=== PATIENT | female | born 1975 | race Caucasian/White ===

== ENCOUNTER 2022-12-09 15:53 | Inpatient (IN) | payer MEDICARE, MEDICAID, SELFPAY ==
[2022-12-09 16:30] VITALS: BP 116/78; PULSE 87; RESP 16; TEMP 36.6; O2SAT 98; BMI 31.9
[2022-12-09 16:34] LABS: Basophils Absolute Auto 0.1 10^3/uL (0.0-0.1); Basophils Percent Auto 0.5 % (0.2-2.0); Eosinophils Absolute Auto 0.1 10^3/uL (0.0-0.7); Eosinophils Percent Auto 0.9 % (0.9-7.0); Hemoglobin 11.7 g/dL (12.0-16.0); Immature Granulocytes Abs Auto 0.07 10^3/uL (0.00-0.03); Immature Granulocytes Pct Auto 0.5 % (0.0-0.5); Lymphocytes Percent Auto 14.4 % (20.5-60.0); Mean Corpuscular Hemoglobin 25.7 pg (26.7-34.0); Mean Corpuscular Volume 85.7 fL (81.0-99.0); Mean Platelet Volume 9.1 fL (9.5-13.5); Monocytes Absolute Auto 0.6 10^3/uL (0.3-0.8); Monocytes Percent Auto 4.5 % (1.7-12.0); Neutrophils Percent Auto 79.2 % (43.0-75.0); Platelet Count 359 10^3/uL (150-450); Red Blood Count 4.55 10^6/uL (4.20-5.40); Red Cell Distribution Width 16.4 % (11.0-15.0); White Blood Count 13.9 10^3/uL (4.0-11.0)
[2022-12-09 16:49] LABS: Partial Thromboplastin Time 33.3 sec (22.3-36.2)
[2022-12-09 16:51] LABS: C Reactive Protein 0.7 mg/dL (<=1.0)
[2022-12-09 16:55] LABS: Alanine Aminotransferase 15 U/L (14-59); Albumin Globulin Ratio 0.7; Albumin Level 3.9 g/dL (3.4-5.0); Alkaline Phosphatase 138 U/L (46-116); Anion Gap 12.4; Aspartate Amino Transferase 15 U/L (15-37); BUN Creatinine Ratio 10.5; Bilirubin Total 0.5 mg/dL (0.2-1.0); Calcium 9.7 mg/dL (8.5-10.1); Carbon Dioxide 27.6 mmol/L (21.0-32.0); Chloride 102 mmol/L (98-107); Estimated GFR (African America >60 (>=60); Estimated GFR (Non-African Ame >60 (>=60); Globulin 5.8 g/dL; Glucose 126 mg/dL (74-106); Sodium 138 mmol/L (136-145); Total Protein 9.7 g/dL (6.4-8.2)
[2022-12-09 17:11] VITALS: RESP 16
[2022-12-09 17:13] LABS: Erythrocyte Sedimentation Rate >130 mm/hr (<=20)
[2022-12-09] MEDS: 0.9 % SODIUM CHLORIDE 250 ML 10 ML IV (17:23)
[2022-12-09] MEDS: ENOXAPARIN SODIUM 40 MG/0.4 ML SYRINGE SUBQ (17:23)
[2022-12-09] MEDS: LINEZOLID IN DEXTROSE 5% 600 MG/300 ML PIGGYBACK 300 MG IV (17:23)
[2022-12-09 17:24] LABS: Glucometer 112 mg/dL (74-106)
[2022-12-09] MEDS: MORPHINE SULFATE 2 MG/ML SYRINGE IV ×2 (17:24→21:01)
[2022-12-09 20:00] VITALS: RESP 16
[2022-12-09] MEDS: ONDANSETRON PF 4 MG/2 ML VIAL IV (21:01)
[2022-12-09] MEDS: AZTREONAM 2,000 MG in 0.9 % SODIUM CHLORIDE 100 ML 100 MG IV (21:32)
[2022-12-09 22:00] VITALS: BP 96/62; PULSE 84; RESP 16; TEMP 36.7; O2SAT 98
[2022-12-09 22:34] VITALS: O2SAT 96
[2022-12-10] VITALS (37 sets, daily range): BP systolic 97–114; BP diastolic 60–70; PULSE 74–80; RESP 18–20; TEMP 36.4–36.8; O2SAT 86–100; BMI 31.9
[2022-12-10] MEDS: MORPHINE SULFATE 2 MG/ML SYRINGE IV ×11 (01:17→23:16)
[2022-12-10] MEDS: ACETAMINOPHEN 325 MG TABLET 650 MG PO ×2 (01:18→12:09)
[2022-12-10] MEDS: ZOLPIDEM TARTRATE 5 MG TABLET PO (01:25)
[2022-12-10] MEDS: AZTREONAM 2,000 MG in 0.9 % SODIUM CHLORIDE 100 ML 100 MG IV ×3 (04:31→19:38)
[2022-12-10] MEDS: ONDANSETRON PF 4 MG/2 ML VIAL IV (04:31)
[2022-12-10 05:32] LABS: Basophils Absolute Auto 0.1 10^3/uL (0.0-0.1); Basophils Percent Auto 0.7 % (0.2-2.0); Eosinophils Absolute Auto 0.3 10^3/uL (0.0-0.7); Eosinophils Percent Auto 2.8 % (0.9-7.0); Hematocrit 32.4 % (36.0-48.0); Hemoglobin 9.8 g/dL (12.0-16.0); Immature Granulocytes Abs Auto 0.04 10^3/uL (0.00-0.03); Immature Granulocytes Pct Auto 0.4 % (0.0-0.5); Lymphocytes Absolute Auto 2.7 10^3/uL (1.2-3.8); Lymphocytes Percent Auto 24.9 % (20.5-60.0); Mean Corpuscular HGB Conc 30.2 g/dL (29.9-35.2); Mean Corpuscular Volume 85.9 fL (81.0-99.0); Mean Platelet Volume 9.3 fL (9.5-13.5); Monocytes Absolute Auto 0.8 10^3/uL (0.3-0.8); Monocytes Percent Auto 7.6 % (1.7-12.0); Neutrophils Absolute Auto 6.8 10^3/uL (1.4-6.5); Neutrophils Percent Auto 63.6 % (43.0-75.0); Platelet Count 268 10^3/uL (150-450); Red Blood Count 3.77 10^6/uL (4.20-5.40); Red Cell Distribution Width 16.3 % (11.0-15.0); White Blood Count 10.7 10^3/uL (4.0-11.0)
[2022-12-10] MEDS: LINEZOLID IN DEXTROSE 5% 600 MG/300 ML PIGGYBACK 200 MG IV (05:49)
[2022-12-10 05:54] LABS: Alanine Aminotransferase 14 U/L (14-59); Albumin Globulin Ratio 0.6; Alkaline Phosphatase 112 U/L (46-116); Anion Gap 10.1; Aspartate Amino Transferase 11 U/L (15-37); BUN Creatinine Ratio 14.6; Bilirubin Total 0.4 mg/dL (0.2-1.0); Calcium 8.9 mg/dL (8.5-10.1); Carbon Dioxide 28.4 mmol/L (21.0-32.0); Chloride 105 mmol/L (98-107); Estimated GFR (African America >60 (>=60); Estimated GFR (Non-African Ame >60 (>=60); Globulin 4.9 g/dL; Glucose 96 mg/dL (74-106); Potassium 4.5 mmol/L (3.5-5.1); Sodium 139 mmol/L (136-145); Total Protein 7.9 g/dL (6.4-8.2)
[2022-12-10] MEDS: OMEPRAZOLE 40 MG CAPSULE.DR PO (07:00)
--- NOTE | 2022-12-10 09:30 | P.HP_ITS ---
H&P: HPI History of Present Illness Chief complaint: Right Hip Wound Narrative: 47 y o female was seen in office on 12/09/22 as a new patient. Patient presented to us with chronic, non healing right hip wound that started as a small ulcerative lesion 5-6 months ago. Patient reports that she would develops small quarter sized ulcerative lesions over lower extremities, sporadically and they heal w/o any intervention. These lesions started to develop/occur about 5-6 months ago. One such lesion developed on her right hip which later on increased in size, became extremely painful/tender, red and raised for which she was seen by PCP. She is unsure whether she was prescribed antibiiotic or not but she was referred to wound care for it. At wound care, she was told this was not a wound yet and was likely infected and was asked to f/u with PCP or dermatology. In the mean time, her lesion broke open and she then developed an open wound which continued to increase in size, depth. She reports minor bumps/blunt trauma on a few occasions to her wound because of poor balance and on one occasion, it split open. She was seen by Dermatology who performed a skin biopsy on a different lesion and was told that her skin lesions are vascular in origin for which she was referred to a vascular surgeon who told her that there was nothing he had to offer from a vascular point of view. [employer] apparently did not do anything for her right hip wound. She was asked to f/u with her PCP by the vascular surgeon but he had moved his practice and is now semi retired so this further delayed her care as she had to find a new PCP. Patient reports she had an EGD/ colonoscopy performed by Dr Cutler about a months ago and when he saw her wound - he was worried and recommended she seeks care for it. Around this time - she noticed her wound was now seeping and developed a foul smell. She has noticed purulent and blood tinged discharge intermittently since then. She denies fever, chills but reports significant weight loss, feeling weak, unsteady, tired and fatigued. Patient was admitted directly to [facility] as the wound is now stage 4 ulcer with muscles/fascia exposed, covered with thick purulent material and about the size of a foot ball with irregular margins. I suspected she will required surgical debridement, IV antibiotics and aggressive wound care and possibly placement of a wound vac. Dr Tabares was consulted for his recommendations and help manage her wound from a surgical software product specialist point of view. Review of Systems ROS Status of ROS 10 or more systems reviewed and unremarkable except as noted in history and below [facility] Medical History (Updated 12/10/22 @ 12:10 by Shaikh Delores MD) Surgical History (Updated 12/09/22 @ 16:14 by Tierra Fitzgerald LPN) Family History (Updated 12/09/22 @ 15:59 by Tierra Fitzgerald LPN) Father Family history of CHF (congestive heart failure) Family history of COPD (chronic obstructive pulmonary disease) Family history of diabetes mellitus Family history of myocardial infarction Grandmother Family history of CHF (congestive heart failure) Mother Family history of COPD (chronic obstructive pulmonary disease) Other Family history of hypertension Social History (Updated 12/09/22 @ 16:02 by Tierra Fitzgerald LPN) Within the past year, how often did you have a drink containing alcohol: never Within the past year, how often did you have six or more drinks on one occasion: never Score interpretation: A score less than 3 is consistent with normal alcohol consumption. Smoking status: Current every day smoker Nicotine containing products detail: pack and a half a day Second hand tobacco smoke exposure: No Non-prescribed substance use: denies use Previous occupational history: disabled Highest level of school completed/degree received: 11th grade Do you want help with school or training: No Are you now , , , , never or living with a partner: In a typical week, how many times do you talk on the telephone with family, friends, or neighbors: 3 or more times per week How often do you get together with friends or relatives: 3 or more times per week How often do you attend rastafari or methodist services: 4 or more times per year Do you belong to any clubs or organizations such as rastafari groups unions, fraternal or athletic groups, or school groups: yes Total score: 4 Score interpretation: A score of greater than or equal to 2 indicates the lowest level of social isolation. Little interest or pleasure in doing things: not at all Feeling down, depressed, or hopeless: not at all Feel stressed/tense/nervous/anxious/difficulty sleeping: not at all Due to disability, difficulty making decisions: No Do you think of yourself as: straight/heterosexual Gender Identity: female Meds Home Medications and Allergies Home Medications Medication Instructions Recorded Confirmed Type cholecalciferol (vitamin D3) 125 5,000 unit PO DAILY 12/09/22 12/09/22 History mcg (5,000 unit) capsule lactulose 10 gram/15 mL oral 10 g PO DAILY 12/09/22 12/09/22 History solution (Constulose) meclizine 25 mg chewable tablet 25 mg PO TID PRN dizziness 12/09/22 12/09/22 His tory (Antivert) multivitamin with folic acid 400 1 tab PO DAILY 12/09/22 12/09/22 History mcg tablet (One Daily Multivitamin) omeprazole 40 mg capsule,delayed 40 mg PO DAILY 12/09/22 12/09/22 History release oxycodone 5 mg tablet 5 mg PO Q8H PRN pain 12/09/22 12/09/22 History potassium chloride 20 mEq 20 meq PO DAILY 12/09/22 12/09/22 History tablet,extended release(part/cryst) (Klor-Con M) spironolactone 50 mg tablet 50 mg PO BID 12/09/22 12/09/22 History (Aldactone) Allergies Allergy/AdvReac Type Severity Reaction Status Date / Time diphenhydramine Allergy Verified 12/09/22 17:18 [From Benadryl] ketorolac [From Toradol] Allergy Verified 12/09/22 17:18 Penicillins Allergy Verified 12/09/22 17:18 Exam Constitutional Vital Signs, click to edit/add: Last Vital Signs Temp 97.5 F L 12/10/22 06:00 Pulse 74 12/10/22 06:00 Resp 18 12/10/22 06:00 BP 102/70 12/10/22 06:00 Pulse Ox 95 12/10/22 06:07 O2 Del Method Room Air 12/10/22 06:00 Documenting provider has reviewed patient's vital signs: yes Common normals: no apparent distress and oriented x3 General appearance: cooperative and comfortable HENNC Common normals: normocephalic and head/scalp atraumatic Head and scalp: normocephalic and atraumatic Eye Common normals: conjunctivae normal and no scleral icterus Conjunctiva: conjunctiva(e) normal Respiratory Common normals: normal respiratory effort and clear to auscultation bilaterally Effort & inspection: able to speak in complete sentences Auscultation: clear to auscultation bilaterally Cardio Common normals: regular rate, regular rhythm, S1 normal heart sound, S2 normal heart sound and no murmurs Rate: regular rate Heart sounds: S1 normal and S2 normal GI Common normals: soft to palpation, non-tender and no hepatosplenomegaly Other: Midline surgical scar and umbilical hernia Extremity Other: Open wound on right hip, deep tissue exposed, thick purulent material covered the wound bed, size is about of a foot ball. Small quarter sized ulcerative lesions over right LE and LLE. Neuro Common normals: oriented x3, moves all extremities and no focal motor deficits Psych Common normals: mental status grossly normal, denies hallucinations, denies homicidal ideation and denies suicidal ideation Results Labs Labs: Short CBC 12/09/22 12/10/22 Range/Units 16:13 04:20 WBC 13.9 H 10.7 (4.0-11.0) 10^3/uL Hgb 11.7 L 9.8 L (12.0-16.0) g/dL Hct 39.0 32.4 L (36.0-48.0) % Plt Count 359 268 (150-450) 10^3/uL BMP 12/09/22 12/10/22 16:13 04:20 Sodium 138 139 Potassium 4.0 4.5 Chloride 102 105 Carbon Dioxide 27.6 28.4 BUN 10.0 14.0 Creatinine 0.95 0.96 Glucose 126 H 96 Calcium 9.7 8.9 Liver Function 12/09/22 12/10/22 Range/Units 16:13 04:20 Total Bilirubin 0.5 0.4 (0.2-1.0) mg/dL AST 15 11 L (15-37) U/L ALT 15 14 (14-59) U/L Alkaline Phosphatase 138 H 112 (46-116) U/L Albumin 3.9 3.0 L (3.4-5.0) g/dL Assessment and Plan Assessment and Plan (1) Complicated open wound of right hip: Assessment and Plan: Chronic, non healing open wound that is now infected with foul smelling, purulent discharge. Patient started on IV Zyvox and Aztreonam (PCN allergic). Gen Surgery consulted for wound debridement. D/w Dr Tabares who is aware of the patient. Consulted clinical project coordinator who will co ordinate with Dr Tabares as he is also software product specialist. F/u Blood and tissue cultures. Qualifiers: Encounter type: subsequent encounter Qualified Code(s): S71.001D - Unspecified open wound, right hip, subsequent encounter (2) Autoimmune disease: Assessment and Plan: Suspect undiagnosed/underlying autoimmune disease responsible for her multi system complaints/symptoms. She had elevated TG, positive anti trypsin ab - ordered by GI to w/u for possible Liver Cirrhosis. Strong suspicion of Vasculitis and labs ordered as outpatient for w/u She will also be referred to Rheum as outpatient once acute illness resolves. (3) COPD (chronic obstructive pulmonary disease): Assessment and Plan: Current everyday smoker, positive alpha anti trypsin ab - suspect underlying COPD as reports recurrent bronchitis and intermittent MORIN with wheezing PFTs ordered as outpatient. For now - duonebs as needed ordered. (4) Nonalcoholic steatohepatitis (ASTUDILLO): Assessment and Plan: Suspected Liver cirrhosis on abdominal imaging done previously. She saw GI who did not think she had Liver cirrhosis but could not confirm or deny w/o Firbroscan which she could not get done due to her wound. According to her, she had normal EGD/colonoscopy. W/u ordered by GI showed positive TG (1:320) and weakly positive alpha 1 antitrypsin. Plan Chronic non healing large wound that is infected and will require surgical debridement, complex wound care, possibly wound vac. Patient is on broad spectrum abx and anticipated to stay 2-3 days for her complex, infected wound. She has failed outpatient therapy and has seen wound care, hospital cna and a vascular provider for her wound and it has continued to get worse for past 5-6 months.
[2022-12-10] MEDS: NICOTINE 21 MG PATCH TD (09:35)
--- NOTE | 2022-12-10 11:59 | CM.NOTE ---
Important Message From Medicare discussed with pt, pt verbalizes understanding and signs paper. Original given to pt and copy placed on pt's chart.
--- NOTE | 2022-12-10 12:17 | DIETREC ---
Recommend 30 mL Pro-stat BID to aid wound healing.
--- NOTE | 2022-12-10 12:51 | PM.GSCN ---
History of Present Illness Consult details Consult date: 12/10/22 Requesting physician: Shaikh Delores Narrative: This patient is a 47-year-old female who I was asked to see for evaluation of a right hip wound. Apparently this process began 7-8 weeks ago and has gradually progressed to the point of the wound having a necrotic appearance with purulence in the following manner as was seen in the office yesterday by Dr. Estrella. She was directly admitted and placed on IV antibiotics. Apparently she has had various skin lesions/open wounds intermittently over the past several years. She reports developing nodular areas underneath her skin which suddenly breakdown and form small wounds. Most of these until this one have healed with local cares. 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 She has been seen by dermatology and a biopsy was done which apparently showed possibly some vasculitis. The vascular surgery did see her and did not have any recommendations. She apparently has not yet seen a application spec. Currently she reports significant discomfort at the right hip site. Review of Systems ROS Status of ROS 10 or more systems reviewed and unremarkable except as noted in history and below [facility] Medical History (Updated 12/10/22 @ 12:10 by Shaikh Delores MD) Surgical History (Updated 12/09/22 @ 16:14 by Tierra Fitzgerald LPN) Family History (Updated 12/09/22 @ 15:59 by Tierra Fitzgerald LPN) Father Family history of CHF (congestive heart failure) Family history of COPD (chronic obstructive pulmonary disease) Family history of diabetes mellitus Family history of myocardial infarction Grandmother Family history of CHF (congestive heart failure) Mother Family history of COPD (chronic obstructive pulmonary disease) Other Family history of hypertension Social History (Updated 12/09/22 @ 16:02 by Tierra Fitzgerald LPN) Within the past year, how often did you have a drink containing alcohol: never Within the past year, how often did you have six or more drinks on one occasion: never Score interpretation: A score less than 3 is consistent with normal alcohol consumption. Smoking status: Current every day smoker Nicotine containing products detail: pack and a half a day Second hand tobacco smoke exposure: No Non-prescribed substance use: denies use Previous occupational history: disabled Highest level of school completed/degree received: 11th grade Do you want help with school or training: No Are you now , , , , never or living with a partner: In a typical week, how many times do you talk on the telephone with family, friends, or neighbors: 3 or more times per week How often do you get together with friends or relatives: 3 or more times per week How often do you attend sabianist or temple services: 4 or more times per year Do you belong to any clubs or organizations such as sabianist groups unions, [employer] or athletic groups, or school groups: yes Total score: 4 Score interpretation: A score of greater than or equal to 2 indicates the lowest level of social isolation. Little interest or pleasure in doing things: not at all Feeling down, depressed, or hopeless: not at all Feel stressed/tense/nervous/anxious/difficulty sleeping: not at all Due to disability, difficulty making decisions: No Do you think of yourself as: straight/heterosexual Gender Identity: female Meds Home Medications and Allergies Home Medications Medication Instructions Recorded Confirmed Type cholecalciferol (vitamin D3) 125 5,000 unit PO DAILY 12/09/22 12/09/22 History mcg (5,000 unit) capsule lactulose 10 gram/15 mL oral 10 g PO DAILY 12/09/22 12/09/22 History solution (Constulose) meclizine 25 mg chewable tablet 25 mg PO TID PRN dizziness 12/09/22 12/09/22 History (Antivert) multivitamin with folic acid 400 1 tab PO DAILY 12/09/22 12/09/22 History mcg tablet (One Daily Multivitamin) omeprazole 40 mg capsule,delayed 40 mg PO DAILY 12/09/22 12/09/22 History release oxycodone 5 mg tablet 5 mg PO Q8H PRN pain 12/09/22 12/09/22 History potassium chloride 20 mEq 20 meq PO DAILY 12/09/22 12/09/22 History tablet,extended release(part/cryst) (Klor-Con M) spironolactone 50 mg tablet 50 mg PO BID 12/09/22 12/09/22 History (Aldactone) Allergies Allergy/AdvReac Type Severity Reaction Status Date / Time diphenhydramine Allergy Verified 12/09/22 17:18 [From Benadryl] ketorolac [From Toradol] Allergy Verified 12/09/22 17:18 Penicillins Allergy Verified 12/09/22 17:18 Exam Constitutional Vital Signs, click to edit/add: Last Vital Signs Temp 97.5 F L 12/10/22 06:00 Pulse 74 12/10/22 06:00 Resp 18 12/10/22 06:00 BP 102/70 12/10/22 06:00 Pulse Ox 95 12/10/22 06:07 O2 Del Method Room Air 12/10/22 06:00 Common normals: no apparent distress and oriented x3 HENMT Common normals: normocephalic Neck & C-Spine Common normals: full ROM and supple Chest Common normals: inspection of chest normal Respiratory Common normals: normal respiratory effort GI Common normals: non-tender Extremity Common normals: full ROM Other: There is a large irregular ulceration at the right hip with necrotic skin and soft tissue. Based on patient's history this is not consistent with a pressure ulcer. Etiology at this time is unknown. Patient does have several somewhat nodular areas in various locations under her skin. Neuro Common normals: oriented x3 Psych Common normals: mental status grossly normal Results Labs Labs: Abnormal lab results 12/09/22 12/09/22 12/10/22 Range/Units 16:13 17:22 04:20 WBC 13.9 H (4.0-11.0) 10^3/uL RBC 3.77 L (4.20-5.40) 10^6/uL Hgb 11.7 L 9.8 L (12.0-16.0) g/dL Hct 32.4 L (36.0-48.0) % MCH 25.7 L 26.0 L (26.7-34.0) pg RDW 16.4 H 16.3 H (11.0-15.0) % MPV 9.1 L 9.3 L (9.5-13.5) fL Neut % (Auto) 79.2 H (43.0-75.0) % Lymph % (Auto) 14.4 L (20.5-60.0) % Neut # (Auto) 11.0 H 6.8 H (1.4-6.5) 10^3/uL Abs Immat Gran (auto) 0.07 H 0.04 H (0.00-0.03) 10^3/uL ESR >130 H (<=20) mm/hr Glucose 126 H (74-106) mg/dL AST 11 L (15-37) U/L Alkaline Phosphatase 138 H (46-116) U/L Total Protein 9.7 H (6.4-8.2) g/dL Albumin 3.0 L (3.4-5.0) g/dL POC Glucose 112 H (74-106) mg/dL Diabetes panel 12/09/22 12/10/22 Range/Units 16:13 04:20 Sodium 138 139 (136-145) mmol/L Potassium 4.0 4.5 (3.5-5.1) mmol/L Chloride 102 105 (98-107) mmol/L Carbon Dioxide 27.6 28.4 (21.0-32.0) mmol/L BUN 10.0 14.0 (7.0-18.0) mg/dL Creatinine 0.95 0.96 (0.55-1.02) mg/dL Glucose 126 H 96 (74-106) mg/dL Calcium 9.7 8.9 (8.5-10.1) mg/dL AST 15 11 L (15-37) U/L ALT 15 14 (14-59) U/L Alkaline Phosphatase 138 H 112 (46-116) U/L Total Protein 9.7 H 7.9 (6.4-8.2) g/dL Albumin 3.9 3.0 L (3.4-5.0) g/dL Calcium panel 12/09/22 12/10/22 Range/Units 16:13 04:20 Calcium 9.7 8.9 (8.5-10.1) mg/dL Albumin 3.9 3.0 L (3.4-5.0) g/dL Pituitary panel 12/09/22 12/10/22 Range/Units 16:13 04:20 Sodium 138 139 (136-145) mmol/L Potassium 4.0 4.5 (3.5-5.1) mmol/L Chloride 102 105 (98-107) mmol/L Carbon Dioxide 27.6 28.4 (21.0-32.0) mmol/L BUN 10.0 14.0 (7.0-18.0) mg/dL Creatinine 0.95 0.96 (0.55-1.02) mg/dL Glucose 126 H 96 (74-106) mg/dL Calcium 9.7 8.9 (8.5-10.1) mg/dL Adrenal panel 12/09/22 12/10/22 Range/Units 16:13 04:20 Sodium 138 139 (136-145) mmol/L Potassium 4.0 4.5 (3.5-5.1) mmol/L Chloride 102 105 (98-107) mmol/L Carbon Dioxide 27.6 28.4 (21.0-32.0) mmol/L BUN 10.0 14.0 (7.0-18.0) mg/dL Creatinine 0.95 0.96 (0.55-1.02) mg/dL Glucose 126 H 96 (74-106) mg/dL Calcium 9.7 8.9 (8.5-10.1) mg/dL Total Bilirubin 0.5 0.4 (0.2-1.0) mg/dL AST 15 11 L (15-37) U/L ALT 15 14 (14-59) U/L Alkaline Phosphatase 138 H 112 (46-116) U/L Total Protein 9.7 H 7.9 (6.4-8.2) g/dL Albumin 3.9 3.0 L (3.4-5.0) g/dL All other labs normal. Assessment and Plan Assessment and Plan (1) Complicated open wound of right hip: Assessment and Plan: This enabled findings the wound will require debridement. This will be scheduled for tomorrow 12/11/2022. We will obtain CT of the pelvis today to evaluate the soft tissue and underlying bony structures. Qualifiers: Encounter type: subsequent encounter Qualified Code(s): S71.001D - Unspecified open wound, right hip, subsequent encounter (2) Autoimmune disease: (3) COPD (chronic obstructive pulmonary disease): (4) Nonalcoholic steatohepatitis (ASTUDILLO):
--- NOTE | 2022-12-10 13:01 | CT_ITS ---
The [address] [address] Patient Name: DIETER ROBERSON MRN: [id number] date: 1975 Sex: F Assigned Patient Location: [place] Current Patient Location: [place] Accession/Order Number: [id number] Exam Date: 12/10/2022 13:25 Report Date: 12/10/2022 14:04 At the request of: NIDHI KEY Procedure: CT pelvis w con EXAMINATION: CT pelvis w con HISTORY: evaluate right hip wound, IV contrast only COMPARISON: No relevant comparison available. TECHNIQUE: Axial, Coronal, and Sagittal CT images obtained with IV contrast. Dose reduction techniques were achieved by using automated exposure control and/or adjustment of mA and/or kV according to patient size and/or use of iterative reconstruction technique. FINDINGS: URINARY BLADDER: No visible focal wall thickening, lesion, or calculus. LYMPH NODES: No adenopathy. BOWEL: No abnormality of the visible bowl. PELVIC ORGANS: Remote hysterectomy ANTERIOR WALL: Complex fluid and soft tissue collection the umbilicus measuring 6.2 x 4.4 cm axial image #21. Postprocedural changes are suspected. Thickening of the ventral fascia could represent prior procedure or even mesh placement. BONES: No bone lesion or fracture. Mild degenerative changes. No focal lytic or sclerotic changes OTHER: Small amount of free pelvic fluid, nonspecific Soft tissue ulcer along the right lateral head measuring 9.7 cm in craniocaudal dimension with some underlying stranding of the subcutaneous fat measuring up to 19 cm in craniocaudal extent. No focal abscess collection. This lesion extends up to 3.8 cm deep the does not extend to the muscle hip joint or bone. No CT evidence of osteomyelitis CT/CT pelvis w con IMPRESSION: Right lateral thigh/hip subcutaneous ulcer and cellulitis with no focal abscess or osteomyelitis Electronically authenticated by: ROHIT VALADEZ Date: 12/10/2022 14:04
[2022-12-10] MEDS: 0.9 % SODIUM CHLORIDE 250 ML 10 ML IV (13:24)
[2022-12-10] MEDS: SODIUM HYPOCHLORITE HALF STRENGTH (0.25%) 473 ML BOTTLE 30 ML TOPICAL ×2 (14:39→23:56)
[2022-12-10] MEDS: LINEZOLID IN DEXTROSE 5% 600 MG/300 ML PIGGYBACK 300 MG IV (17:10)
[2022-12-11] VITALS (17 sets, daily range): BP systolic 88–117; BP diastolic 54–72; PULSE 70–102; RESP 11–28; TEMP 36.5–36.6; O2SAT 83–99
[2022-12-11] MEDS: ZOLPIDEM TARTRATE 5 MG TABLET PO ×2 (01:34→22:37)
[2022-12-11] MEDS: MORPHINE SULFATE 2 MG/ML SYRINGE IV ×9 (01:34→22:37)
[2022-12-11] MEDS: AZTREONAM 2,000 MG in 0.9 % SODIUM CHLORIDE 100 ML 100 MG IV ×3 (04:18→20:34)
[2022-12-11] MEDS: LINEZOLID IN DEXTROSE 5% 600 MG/300 ML PIGGYBACK 150 MG IV (05:26)
[2022-12-11 05:44] LABS: Basophils Absolute Auto 0.1 10^3/uL (0.0-0.1); Basophils Percent Auto 0.8 % (0.2-2.0); Eosinophils Absolute Auto 0.3 10^3/uL (0.0-0.7); Eosinophils Percent Auto 2.8 % (0.9-7.0); Hematocrit 32.6 % (36.0-48.0); Hemoglobin 9.5 g/dL (12.0-16.0); Immature Granulocytes Abs Auto 0.02 10^3/uL (0.00-0.03); Immature Granulocytes Pct Auto 0.2 % (0.0-0.5); Lymphocytes Absolute Auto 2.1 10^3/uL (1.2-3.8); Lymphocytes Percent Auto 23.2 % (20.5-60.0); Mean Corpuscular HGB Conc 29.1 g/dL (29.9-35.2); Mean Corpuscular Hemoglobin 26.7 pg (26.7-34.0); Mean Corpuscular Volume 91.6 fL (81.0-99.0); Mean Platelet Volume 9.6 fL (9.5-13.5); Monocytes Absolute Auto 0.7 10^3/uL (0.3-0.8); Monocytes Percent Auto 7.2 % (1.7-12.0); Neutrophils Absolute Auto 6.1 10^3/uL (1.4-6.5); Neutrophils Percent Auto 65.8 % (43.0-75.0); Platelet Count 245 10^3/uL (150-450); Red Blood Count 3.56 10^6/uL (4.20-5.40); Red Cell Distribution Width 16.3 % (11.0-15.0); White Blood Count 9.2 10^3/uL (4.0-11.0)
[2022-12-11 05:59] LABS: Alanine Aminotransferase 13 U/L (14-59); Albumin Globulin Ratio 0.6; Albumin Level 2.8 g/dL (3.4-5.0); Alkaline Phosphatase 106 U/L (46-116); Anion Gap 9.7; Aspartate Amino Transferase 12 U/L (15-37); BUN Creatinine Ratio 13.2; Bilirubin Total 0.4 mg/dL (0.2-1.0); Calcium 8.7 mg/dL (8.5-10.1); Carbon Dioxide 29.2 mmol/L (21.0-32.0); Chloride 105 mmol/L (98-107); Estimated GFR (African America >60 (>=60); Estimated GFR (Non-African Ame >60 (>=60); Globulin 4.7 g/dL; Glucose 91 mg/dL (74-106); Potassium 3.9 mmol/L (3.5-5.1); Sodium 140 mmol/L (136-145); Total Protein 7.5 g/dL (6.4-8.2)
--- NOTE | 2022-12-11 07:08 | PC.NURSE ---
change pt dressing on right hip at @ 0000, pt tolerated it ok, she was in a lot of pain removing gauze, tape and packing. irrigate with N/S, dry leg than dampen gauze against wound with dakens, cover with dry gauze than an ABD, tape abd on pt leg
[2022-12-11] MEDS: LACTATED RINGER'S SOLUTION 1,000 ML 50 ML IV (11:19)
--- NOTE | 2022-12-11 11:22 | P.IMPN_ITS ---
Progress Note: A&P Assessment and Plan (1) Complicated open wound of right hip: Assessment and Plan: CT pelvis - negative for OM/abscess. On IV abx. NPO for debridement today. Will need wound vac and outpatient f/u with wound. Fu OR cx when available. Qualifiers: Encounter type: subsequent encounter Qualified Code(s): S71.001D - Unspecified open wound, right hip, subsequent encounter (2) Autoimmune disease: Assessment and Plan: Positive TG 1:320 - patient reports generalized aches/pains, polyarthralgia, an d ulcerative skin lesions - suspect underlying AI disease. W/u for Autoimmune disease ordered with morning labs tomorrow. Will need outpatient f/u with Rheum (3) COPD (chronic obstructive pulmonary disease): Assessment and Plan: Suspect COPD - never formally diagnosed. Duonebs as needed while in patient. (4) Nonalcoholic steatohepatitis (ASTUDILLO): Assessment and Plan: Will get outpatient US for follow up. (5) Anemia: Assessment and Plan: Normocytic. Suspect due to chronic illness. Check Iron profile/B12 and folate Internal Medicine - PN: Subj Subjective Interval history: Seen and examined. Doing well No overnight events. NPO for surgery today. Exam Constitutional Vital Signs, click to edit/add: Last Vital Signs Temp 97.7 F 12/11/22 05:33 Pulse 102 H 12/11/22 05:33 Resp 18 12/11/22 05:33 BP 99/64 12/11/22 05:33 Pulse Ox 94 L 12/11/22 11:07 O2 Del Method Room Air 12/11/22 11:07 Documenting provider has reviewed patient's vital signs: yes Common normals: no apparent distress and oriented x3 General appearance: cooperative and comfortable [facility] Common normals: normocephalic and head/scalp atraumatic Head and scalp: normocephalic and atraumatic Eye Common normals: conjunctivae normal and no scleral icterus Conjunctiva: conjunctiva(e) normal Respiratory Common normals: normal respiratory effort and clear to auscultation bilaterally Effort & inspection: able to speak in complete sentences Auscultation: clear to auscultation bilaterally Cardio Common normals: regular rate, regular rhythm, S1 normal heart sound, S2 normal heart sound and no murmurs Rate: regular rate Heart sounds: S1 normal and S2 normal GI Common normals: soft to palpation, non-tender and no hepatosplenomegaly Other: Midline surgical scar and umbilical hernia Extremity Other: Open wound on right hip, deep tissue exposed, thick purulent material covered the wound bed, size is about of a foot ball. Small quarter sized ulcerative lesions over right LE and LLE. Neuro Common normals: oriented x3, moves all extremities and no focal motor deficits Psych Common normals: mental status grossly normal, denies hallucinations, denies homicidal ideation and denies suicidal ideation Internal Medicine - PN: Obj Da Labs Labs: Laboratory Results - last 24 hr 12/11/22 04:21 WBC 9.2 RBC 3.56 L Hgb 9.5 L Hct 32.6 L MCV 91.6 MCH 26.7 MCHC 29.1 L RDW 16.3 H Plt Count 245 MPV 9.6 Neut % (Auto) 65.8 Lymph % (Auto) 23.2 [place] % (Auto) 7.2 Eos % (Auto) 2.8 Baso % (Auto) 0.8 Neut # (Auto) 6.1 Lymph # (Auto) 2.1 [place] # (Auto) 0.7 Eos # (Auto) 0.3 Baso # (Auto) 0.1 Abs Immat Gran (auto) 0.02 Imm/Tot Granulo (auto) 0.2 Sodium 140 Potassium 3.9 Chloride 105 Carbon Dioxide 29.2 Anion Gap 9.7 BUN 12.0 Creatinine 0.91 Est GFR ( Amer) >60 Est GFR (Non-Af Amer) >60 BUN/Creatinine Ratio 13.2 Glucose 91 Calcium 8.7 Total Bilirubin 0.4 AST 12 L ALT 13 L Alkaline Phosphatase 106 Total Protein 7.5 Albumin 2.8 L Globulin 4.7 Albumin/Globulin Ratio 0.6
--- NOTE | 2022-12-11 12:21 | PC.NURSE ---
Wound to right hip measured by Dr. Tabares prior to procedure start time, measuring 10 W x 6L x 0.5 D
[2022-12-11] MEDS: HYDROMORPHONE HCL 0.5 MG/0.5 ML SYRINGE IV (12:33)
[2022-12-11] MEDS: NICOTINE 21 MG PATCH TD (13:13)
[2022-12-11] MEDS: 0.9 % SODIUM CHLORIDE 250 ML 10 ML IV (13:18)
--- NOTE | 2022-12-11 15:15 | PM.GSPRC ---
Date of procedure: 12/11/22 Indications for Procedure: This patient is a 47-year-old female who was due to a large infected right hip wound. Apparently this began approximately 6-8 weeks ago. Patient apparently does have a connective tissue disorder and has had spontaneous wounds open in the past. On my evaluation of the patient yesterday there was significant nonviable tissue noted in the large wound and therefore I recommended surgical debridement. The risks benefits options and potential complications of the procedure were discussed in detail with her and she agreed to proceed and consent was signed. Pre-op diagnosis: Right hip wound Post-op diagnosis: same as pre-op Procedure: Debridement right hip wound Anesthesia: GETA Surgeon: Krishna Tabares Procedure Summary: The patient was brought to the operating room and placed in the supine position. Gen. anesthesia was induced and the patient was intubated. She was then placed in the left lateral decubitus position. The wound and the surrounding skin was prepped and draped in usual sterile fashion. Patient had been receiving IV antibiotics since admission. Pre-debridement measurements were 10 cm x 6 cm x 0.5 cm. There were several patchy areas of nonviable subcutaneous tissue. Using sharp scalpel dissection all of the nonviable tissue was removed down into the subcutaneous tissue with bleeding noted. A few small bleeding points were controlled with pressure as well as electrocautery. Hemostasis was subsequently noted. Post-debridement measurements were 10 cm x 6 cm x 1 cm. A small segment of the wound tissue will be sent for pathology. The wound was then packed with Dakin's sponges. Sterile dressings were then applied. Sponge needle and instrument counts are correct at the end of the procedure. The patient tolerated the procedure well and was transferred to the recovery area in stable condition. Estimated blood loss (mL): 10 Specimens: Segment of wound tissue Complications: No Pathology: other
[2022-12-11] MEDS: LINEZOLID IN DEXTROSE 5% 600 MG/300 ML PIGGYBACK 300 MG IV (16:42)
[2022-12-11] MEDS: ENOXAPARIN SODIUM 40 MG/0.4 ML SYRINGE SUBQ (17:00)
[2022-12-11] MEDS: ACETAMINOPHEN 325 MG TABLET 650 MG PO (18:36)
[2022-12-12] MEDS: MORPHINE SULFATE 2 MG/ML SYRINGE IV ×5 (00:39→12:33)
[2022-12-12 02:00] VITALS: O2SAT 97
[2022-12-12] MEDS: AZTREONAM 2,000 MG in 0.9 % SODIUM CHLORIDE 100 ML 100 MG IV ×2 (04:17→11:33)
[2022-12-12 04:39] VITALS: O2SAT 97
[2022-12-12 05:21] VITALS: BP 104/67; PULSE 71; RESP 18; TEMP 36.7; O2SAT 98
[2022-12-12 05:26] LABS: Basophils Absolute Auto 0.1 10^3/uL (0.0-0.1); Basophils Percent Auto 0.8 % (0.2-2.0); Eosinophils Absolute Auto 0.3 10^3/uL (0.0-0.7); Hematocrit 34.3 % (36.0-48.0); Hemoglobin 10.2 g/dL (12.0-16.0); Immature Granulocytes Abs Auto 0.02 10^3/uL (0.00-0.03); Immature Granulocytes Pct Auto 0.2 % (0.0-0.5); Lymphocytes Absolute Auto 2.6 10^3/uL (1.2-3.8); Lymphocytes Percent Auto 30.1 % (20.5-60.0); Mean Corpuscular HGB Conc 29.7 g/dL (29.9-35.2); Mean Corpuscular Hemoglobin 26.2 pg (26.7-34.0); Mean Corpuscular Volume 88.2 fL (81.0-99.0); Mean Platelet Volume 9.5 fL (9.5-13.5); Monocytes Absolute Auto 0.5 10^3/uL (0.3-0.8); Monocytes Percent Auto 5.7 % (1.7-12.0); Neutrophils Absolute Auto 5.3 10^3/uL (1.4-6.5); Neutrophils Percent Auto 60.2 % (43.0-75.0); Platelet Count 281 10^3/uL (150-450); Red Blood Count 3.89 10^6/uL (4.20-5.40); Red Cell Distribution Width 16.2 % (11.0-15.0); White Blood Count 8.7 10^3/uL (4.0-11.0)
[2022-12-12] MEDS: LINEZOLID IN DEXTROSE 5% 600 MG/300 ML PIGGYBACK 150 MG IV (05:40)
[2022-12-12] MEDS: OMEPRAZOLE 40 MG CAPSULE.DR PO (05:40)
[2022-12-12 05:47] LABS: Alanine Aminotransferase 13 U/L (14-59); Albumin Globulin Ratio 0.5; Albumin Level 2.9 g/dL (3.4-5.0); Alkaline Phosphatase 131 U/L (46-116); Anion Gap 7.8; Aspartate Amino Transferase 15 U/L (15-37); BUN Creatinine Ratio 13.9; Bilirubin Total 0.3 mg/dL (0.2-1.0); Calcium 9.3 mg/dL (8.5-10.1); Carbon Dioxide 30.2 mmol/L (21.0-32.0); Chloride 103 mmol/L (98-107); Estimated GFR (African America >60 (>=60); Estimated GFR (Non-African Ame >60 (>=60); Globulin 5.3 g/dL; Glucose 89 mg/dL (74-106); Sodium 137 mmol/L (136-145); Total Protein 8.2 g/dL (6.4-8.2)
[2022-12-12] MEDS: CHOLECALCIFEROL (VITAMIN D3) 125 MCG/5000 UNIT TABLET PO (08:11)
[2022-12-12] MEDS: MULTIVITAMIN TABLET 1 TAB PO (08:11)
[2022-12-12] MEDS: LACTULOSE 10 GM/15 ML UD CUP PO (08:11)
[2022-12-12] MEDS: NICOTINE 21 MG PATCH TD (08:11)
[2022-12-12] MEDS: SODIUM HYPOCHLORITE HALF STRENGTH (0.25%) 473 ML BOTTLE 30 ML TOPICAL (08:15)
[2022-12-12 08:23] LABS: Percent Iron Saturation 3.9 %
--- NOTE | 2022-12-12 08:30 | P.DS_ITS ---
DS: Providers Provider Date of admission: 12/09/22 15:53 Primary care physician: Shaikh Delores MD Consults: 12/09/22 14:06 Consult to General Surgeon Routine Consulting Provider: Krishna Tabares Reason for consultation: iNFECTED WOUND 12/11/22 11:28 Physical Therapy Eval and Treat Routine Reason for consultation: Unsteady gait. DS: Diagnosis Discharge Diagnosis (1) Complicated open wound of right hip: Qualifiers: Encounter type: subsequent encounter Qualified Code(s): S71.001D - Unspecified open wound, right hip, subsequent encounter (2) Autoimmune disease: (3) COPD (chronic obstructive pulmonary disease): (4) Nonalcoholic steatohepatitis (ASTUDILLO): (5) Anemia: Plan (1) Complicated open wound of right hip: (2) Autoimmune disease: (3) COPD (chronic obstructive pulmonary disease): (4) Nonalcoholic steatohepatitis (ASTUDILLO): (5) Anemia: DS: Summary Hospital Course Hospital Course: Patient was admitted with nonhealing wounds. Taken for surgical debridement after started on IV antibiotics. Patient overall is improving. She feels much better. Pain fairly well controlled with current medications. We will track down previously done cultures. At this point the plan is for discharge to home today. Wound VAC placed either prior to discharge or at specialist office. Medications see list. Follow-up with PCP and surgery per protocol Time Spent with Patient Time attestation: Total time spent providing and/or coordinating discharge services: Exam Constitutional Vital Signs, click to edit/add: Last Vital Signs Temp 98.1 F 12/12/22 05:21 Pulse 71 12/12/22 05:21 Resp 18 12/12/22 05:21 BP 104/67 12/12/22 05:21 Pulse Ox 98 12/12/22 05:21 O2 Del Method Nasal Cannula 12/12/22 05:21 O2 Flow Rate 2 12/12/22 05:21 Documenting provider has reviewed patient's vital signs: yes Common normals: no apparent distress and oriented x3 General appearance: cooperative and comfortable [facility] Common normals: normocephalic and head/scalp atraumatic Head and scalp: normocephalic and atraumatic Eye Common normals: conjunctivae normal and no scleral icterus Conjunctiva: conjunctiva(e) normal Respiratory Common normals: normal respiratory effort and clear to auscultation bilaterally Effort & inspection: able to speak in complete sentences Auscultation: clear to auscultation bilaterally Cardio Common normals: regular rate, regular rhythm, S1 normal heart sound, S2 normal heart sound and no murmurs Rate: regular rate Heart sounds: S1 normal and S2 normal GI Common normals: soft to palpation, non-tender and no hepatosplenomegaly Other: Midline surgical scar and umbilical hernia Extremity Other: Open wound on right hip, deep tissue exposed, thick purulent material covered the wound bed, size is about of a foot ball. Small quarter sized ulcerative lesions over right LE and LLE. Neuro Common normals: oriented x3, moves all extremities and no focal motor deficits Psych Common normals: mental status grossly normal, denies hallucinations, denies homicidal ideation and denies suicidal ideation DS: Data Data Completed and Pending Labs on day of discharge: Labs from last 24 hours 12/12/22 04:28 WBC 8.7 RBC 3.89 L Hgb 10.2 L Hct 34.3 L MCV 88.2 MCH 26.2 L MCHC 29.7 L RDW 16.2 H Plt Count 281 MPV 9.5 Neut % (Auto) 60.2 Lymph % (Auto) 30.1 [place] % (Auto) 5.7 Eos % (Auto) 3.0 Baso % (Auto) 0.8 Neut # (Auto) 5.3 Lymph # (Auto) 2.6 [place] # (Auto) 0.5 Eos # (Auto) 0.3 Baso # (Auto) 0.1 Abs Immat Gran (auto) 0.02 Imm/Tot Granulo (auto) 0.2 Sodium 137 Potassium 4.0 Chloride 103 Carbon Dioxide 30.2 Anion Gap 7.8 BUN 11.0 Creatinine 0.79 Est GFR ( Amer) >60 Est GFR (Non-Af Amer) >60 BUN/Creatinine Ratio 13.9 Glucose 89 Calcium 9.3 Iron 16.0 L TIBC 408.0 % Saturation 3.9 Total Bilirubin 0.3 AST 15 ALT 13 L Alkaline Phosphatase 131 H Total Protein 8.2 Albumin 2.9 L Globulin 5.3 Albumin/Globulin Ratio 0.5 Preliminary micro results at discharge 12/09/22 16:13 - Preliminary Blood NO GROWTH AT 36-48 HOURS. FINAL TO FOLLOW. 12/09/22 16:13 Blood Culture Result 1 - Preliminary Blood NO GROWTH AT 36-48 HOURS. FINAL TO FOLLOW. Discharge Plan Discharge Disposition: Home, Self-Care Discharge Medications: New ciprofloxacin HCl [Cipro] 500 mg tablet 500 mg PO Q12H Qty: 30 0RF linezolid 600 mg tablet 600 mg PO BID 30 Days Qty: 60 0RF Continued oxycodone 5 mg tablet 5 mg PO Q8H PRN (Reason: pain) cholecalciferol (vitamin D3) 125 mcg (5,000 unit) capsule 5,000 unit PO DAILY meclizine [Antivert] 25 mg tablet,chewable 25 mg PO TID PRN (Reason: dizziness) omeprazole 40 mg capsule,delayed release(DR/EC) 40 mg PO DAILY potassium chloride [Klor-Con M20] 20 mEq tablet,ER particles/crystals 20 meq PO DAILY spironolactone [Aldactone] 50 mg tablet 50 mg PO BID lactulose [Constulose] 10 gram/15 mL solution 10 g PO DAILY multivitamin with folic acid [One Daily Multivitamin] 400 mcg tablet 1 tab PO DAILY Forms: Portal Instructions
--- NOTE | 2022-12-12 08:48 | SWNOTE1 ---
DEB spoke with case management and pt will need a wound vac. DEB did get out wound vac order form for Dr. Tabares to fill out. DEB gave to nursing for doctor to fill out when he comes. DEB then spoke with pt. She is aware of needing wound vac and she voiced they told her it would likely be placed on Thursday at the wound center. She also voiced in the past she has came here as an outpt to have wet to try dressing changes until wound vac arrived. DEB to see what doctor says when he comes and then will assist with dc planning. DEB has sent referral to [facility] in case pt needs to have dressing changes at home and can't do JANESSA.
--- NOTE | 2022-12-12 09:14 | CM.NOTE ---
Rounds made with thomas Reid for discharge to home today. Reached out to Marta from wound care and they have started the process for a wound vac. SW will discuss with pt about HH prior to discharge.
--- NOTE | 2022-12-12 09:35 | SWNOTE1 ---
Case management had message from Marta at wound center and they have ordered the wound vac. DEB spoke with Marta as well to see if they wanted pt set up with home health or if she shoudl come here as JANESSA patient for dressing changes until wound vac arrives. It is up to patient. DEB to speak with pt again.
--- NOTE | 2022-12-12 10:07 | SWNOTE1 ---
DEB was able to speak with Dr. Tabares after he saw patient. Dr. Tabares is alright with pt keeping dressing on until Thursday and they will place wound vac on Thursday at office. Doctor does not feel it is necessary to set up home health at this time. No needs at discharge from SW stand point. SW updated nursing.
--- NOTE | 2022-12-12 11:16 | PM.GSPN ---
Progress Note: A&P Assessment and Plan (1) Complicated open wound of right hip: Assessment and Plan: we will have nursing change the dressing today and from a surgical standpoint patient may be discharged home. She'll keep this dressing on until Thursday when she will be seen at the wound center. Plan will be for initiation of VAC therapy. Qualifiers: Encounter type: subsequent encounter Qualified Code(s): S71.001D - Unspecified open wound, right hip, subsequent encounter (2) Autoimmune disease: (3) COPD (chronic obstructive pulmonary disease): (4) Nonalcoholic steatohepatitis (ASTUDILLO): (5) Anemia: Subjective Subjective Interval history: patient somewhat sore although feels better today. Exam Narrative Exam Narrative: right hip dressing clean and dry Constitutional Vital Signs, click to edit/add: Last Vital Signs Temp 98.1 F 12/12/22 05:21 Pulse 71 12/12/22 05:21 Resp 18 12/12/22 05:21 BP 104/67 12/12/22 05:21 Pulse Ox 98 12/12/22 05:21 O2 Del Method Nasal Cannula 12/12/22 05:21 O2 Flow Rate 2 12/12/22 05:21
[2022-12-13 04:07] LABS: Complement C3, Serum 138 mg/dL (82-167); Complement C4, Serum 18 mg/dL (12-38); Rheumatoid Factor (RF) <10.0 IU/mL (<14.0); Transferrin 338 mg/dL (192-364)
[2022-12-13 15:10] LABS: Anticardiolipin Ab,IgA,Qn <9 APL U/mL (0-11); Anticardiolipin Ab,IgG,Qn <9 GPL U/mL (0-14); Anticardiolipin Ab,IgM,Qn 13 MPL U/mL (0-12)
[2022-12-15 13:07] LABS: Anti-dsDNA Antibodies 2 IU/mL (0-9); Antiscleroderma-70 Antibodies 1.2 AI (0.0-0.9)
--- NOTE | 2022-12-15 13:51 | CM.DCFOLLOWU ---
Person spoke with: patient How are you feeling? well How is your pain? still has pain, but as expected Did you understand your discharge instructions? yes Do you have any questions about your discharge instructions? no Were you given any prescriptions at discharge? yes Were you able to get your prescriptions filled? yes Do you understand how to take your medications as ordered? yes Do you have any questions about your follow up appointment and do you plan to keep your follow up appointment? no questions, yes follow up was today. She had dressing changed since the wound vac was not in, goes back Thursday Is there anything else that you would like to discuss? no Questions/Comments/Concerns/Other:
[2022-12-15 15:07] LABS: Angiotensin-Converting Enzyme 42 U/L (14-82)
[2022-12-15 17:07] LABS: Beta-2 Glycoprotein I Ab, IgA <9 (0-25); Beta-2 Glycoprotein I Ab, IgG <9 (0-20); Beta-2 Glycoprotein I Ab, IgM <9 (0-32)
[2022-12-15 21:07] LABS: Anti-MPO Antibodies <0.2 units (0.0-0.9); Anti-PR3 Antibodies <0.2 units (0.0-0.9); Cytoplasmic (C-ANCA) <1:20 titer (Neg:<1:20); Perinuclear (P-ANCA) <1:20 titer (Neg:<1:20)
[2022-12-17 11:09] LABS: Anticardiolipin Ab,IgG,Qn <9 GPL U/mL (0-14); Anticardiolipin Ab,IgM,Qn 12 MPL U/mL (0-12); Beta-2 Glycoprotein I Ab, IgG <9 (0-20); Beta-2 Glycoprotein I Ab, IgM <9 (0-32)
[2022-12-17 14:09] LABS: Coag Study Int Note (.)
== END 2022-12-12 14:40 | disposition home or self-care (01) | DRG 571 ==
PROVIDERS: Surgery; Admitting Provider Internal Medicine; PCP Internal Medicine; Visit Provider Internal Medicine
PROC: 0JBL0ZZ Excision of Right Upper Leg Subcutaneous Tissue and Fascia, Open Approach (ICD-10-PCS; principal; 2022-12-11 11:30)
DX: S71.001A Unspecified open wound, right hip, initial encounter (principal); L97.829 Non-pressure chronic ulcer of other part of left lower leg with unspecified severity; Q79.60 Ehlers-Danlos syndrome, unspecified; X58.XXXA Exposure to other specified factors, initial encounter; J44.9 Chronic obstructive pulmonary disease, unspecified; K75.81 Nonalcoholic steatohepatitis (NASH); D64.9 Anemia, unspecified; R63.4 Abnormal weight loss; D89.89 Other specified disorders involving the immune mechanism, not elsewhere classified; Z83.6 Family history of other diseases of the respiratory system; Z83.3 Family history of diabetes mellitus; Z82.49 Family history of ischemic heart disease and other diseases of the circulatory system; F17.210 Nicotine dependence, cigarettes, uncomplicated; Z88.0 Allergy status to penicillin; Z88.6 Allergy status to analgesic agent; Z88.8 Allergy status to other drugs, medicaments and biological substances; Z79.899 Other long term (current) drug therapy; Z68.31 Body mass index [BMI] 31.0-31.9, adult
CPT/HCPCS: 36415; 72193; 80053; 82164; 82607; 82728; 82746; 82948; 83516; 83540; 83550; 84466; 85025; 85598; 85610; 85613; 85652; 85670; 85730; 86036; 86140; 86146; 86147; 86160; 86225; 86235; 86430; 86431; 87040; 88305; 94761; 96365; 96366; 96367; 96368; 96372; 96375; 96376; J1170; J2020; J2704; Q9967

== ENCOUNTER 2022-12-15 10:53 | Outpatient (OUT) | payer MEDICARE, MEDICAID, SELFPAY | END 2022-12-15 10:54 | disposition home or self-care (01) | LOC: WC 10:53 | PROVIDERS: PCP Internal Medicine; Visit Provider Surgery | DX: L97.111 Non-pressure chronic ulcer of right thigh limited to breakdown of skin (principal) | CPT/HCPCS: A6213; G0463 ==

== ENCOUNTER 2022-12-17 10:57 | Outpatient (OUT) | payer MEDICARE, MEDICAID, SELFPAY | END 2022-12-17 10:58 | disposition home or self-care (01) | LOC: WC 10:58 | PROVIDERS: PCP Internal Medicine; Visit Provider Surgery | DX: L97.111 Non-pressure chronic ulcer of right thigh limited to breakdown of skin (principal) | CPT/HCPCS: A6213; G0463 ==

== ENCOUNTER 2022-12-19 11:01 | Outpatient (OUT) | payer MEDICARE, MEDICAID, SELFPAY | END 2022-12-19 11:02 | disposition home or self-care (01) | LOC: WC 11:01 | PROVIDERS: PCP Internal Medicine; Visit Provider Surgery | DX: L97.111 Non-pressure chronic ulcer of right thigh limited to breakdown of skin (principal) | CPT/HCPCS: 97606; A6213 ==

== ENCOUNTER 2022-12-22 15:11 | Outpatient (OUT) | payer MEDICARE, MEDICAID, SELFPAY | END 2022-12-22 15:12 | disposition home or self-care (01) | LOC: WC 15:11 | PROVIDERS: PCP Internal Medicine; Visit Provider Surgery | DX: L97.111 Non-pressure chronic ulcer of right thigh limited to breakdown of skin (principal) | CPT/HCPCS: 97605 ==

== ENCOUNTER 2022-12-23 14:42 | Outpatient (OUT) | payer MEDICARE, MEDICAID, SELFPAY ==
[2022-12-26 21:07] LABS: Anti-MPO Antibodies <0.2 units (0.0-0.9); Anti-PR3 Antibodies <0.2 units (0.0-0.9); Cytoplasmic (C-ANCA) <1:20 titer (Neg:<1:20); Perinuclear (P-ANCA) <1:20 titer (Neg:<1:20)
== END 2022-12-23 14:43 | disposition home or self-care (01) ==
LOC: LAB 14:46
PROVIDERS: PCP Internal Medicine; Visit Provider Internal Medicine
DX: D89.89 Other specified disorders involving the immune mechanism, not elsewhere classified (principal); E55.9 Vitamin D deficiency, unspecified
CPT/HCPCS: 36415; 82306

== ENCOUNTER 2022-12-25 15:22 | Outpatient (OUT) | payer MEDICARE, MEDICAID, SELFPAY | END 2022-12-25 15:23 | disposition home or self-care (01) | LOC: WC 15:23 | PROVIDERS: PCP Internal Medicine; Visit Provider Surgery | DX: L97.111 Non-pressure chronic ulcer of right thigh limited to breakdown of skin (principal) | CPT/HCPCS: 97606 ==

== ENCOUNTER 2022-12-29 15:32 | Outpatient (OUT) | payer MEDICARE, MEDICAID, SELFPAY | END 2022-12-29 15:33 | disposition home or self-care (01) | LOC: WC 15:32 | PROVIDERS: PCP Internal Medicine; Visit Provider Surgery | DX: L97.111 Non-pressure chronic ulcer of right thigh limited to breakdown of skin (principal) | CPT/HCPCS: 97606 ==

== ENCOUNTER 2022-12-30 10:55 | Outpatient (OUT) | payer MEDICARE, MEDICAID, SELFPAY ==
--- NOTE | 2022-12-30 | MR_ITS ---
The [address] [address] Patient Name: DIETER ROBERSON MRN: [id number] date: 1975 Sex: F Assigned Patient Location: CARD Current Patient Location: CARD Accession/Order Number: [id number] Exam Date: 12/30/2022 11:06 Report Date: 12/30/2022 12:22 At the request of: SHAIKH LANIE Procedure: MR head/brain wo con MR head/brain wo con, 12/30/2022 11:06 AM EDT INDICATION: Chiari malformation with more frequent headache COMPARISON: CT of the head dated 05/14/2022 TECHNIQUE: Multiplanar, multisequential MRI images of brain were obtained without injection of contrast. FINDINGS: The cerebral sulci as well as ventricular system are appropriate for age. The cerebral tonsils are approximately 7.3 mm below the foramen of magnum, right more than left most likely consistent with known Chiari malformation. No other associated abnormalities noted. There is no signs of the increased intracranial pressure There is no restricted diffusion. There is no intracranial mass, mass effect, midline shift, intra or extra-axial fluid collection or large hemorrhage. Normal flow-void in the intracranial vessels is noted. There is a small retention cyst within the right maxillary sinus. The visualized portions of orbits, mastoid air cells as well as remainder of paranasal sinuses are unremarkable. MR/MR head/brain wo con IMPRESSION: No acute intracranial process is noted. Known Chiari type I malformation. Electronically authenticated by: GEOVANI WALDEN Date: 12/30/2022 12:22
--- NOTE | 2022-12-30 10:15 | RT_ITS ---
The [facility] Test Date: 2022-12-30 Pat Name: DIETER ROBERSON Department: Room: - Gender: Female Ict Project Manager: Kasi Winston RRT : 1975 Requested By: [id number] Order Number: [id number] Reading MD: Abisai Reynolds Interpretive Statements Pulmonary function testing was completed according to ATS criteria. Findings were considered accurate and reproducible. No bronchodilator was administered due to normal spirometric values. Due to software limitations, no prior studies (if performed previously) are currently available for comparison. Spirometry: -FEV1/FVC: Normal @ 78% -FEV1: Normal @ 105% -FVC: Normal @ 108% Lung volumes by plethysmography: -RV: Normal @ 104% -TLC: Normal @ 115% Diffusion capacity: -DLCO: Normal @ 87% when corrected for Hb 10.2g/dL Flow-volume loop: -Normal expiratory shape. Slight flattening of the inspiratory limb. Impressions: -Normal spirometry, lung volumes, and diffusion capacity. The slight flattening of the inspiratory limb could indicate a variable extrathoracic obstruction, or it may just be normal for this patient. Clinical correlation required. Electronically Signed On 12-31-2022 12:20:27 EDT by Abisai Reynolsd
== END 2022-12-30 10:56 | disposition home or self-care (01) ==
LOC: CARD 10:55
PROVIDERS: PCP Internal Medicine; Visit Provider Internal Medicine
DX: G93.5 Compression of brain (principal); K76.0 Fatty (change of) liver, not elsewhere classified; R06.09 Other forms of dyspnea; R05.9 Cough, unspecified; J44.9 Chronic obstructive pulmonary disease, unspecified
CPT/HCPCS: 70551; 94010; 94726; 94729

== ENCOUNTER 2023-01-01 10:03 | Outpatient (OUT) | payer MEDICARE, MEDICAID, SELFPAY ==
--- NOTE | 2023-01-01 10:13 | US_ITS ---
The [address] [address] Patient Name: DIETER ROBERSON MRN: [id number] date: 1975 Sex: F Assigned Patient Location: US Current Patient Location: US Accession/Order Number: [id number] Exam Date: 01/01/2023 10:20 Report Date: 01/01/2023 11:06 At the request of: SHAIKH LANIE Procedure: US right upper quadrant EXAM: US right upper quadrant HISTORY: . Raised Antibody Titer R76.0 . COMPARISON: None. TECHNIQUE: Grayscale and color imaging was performed FINDINGS: The pancreas appears normal. Scanning of the liver demonstrates a liver to be prominent in size measuring 19 cm. There is color flow in the portal and hepatic veins. There is slight increased echogenicity of liver. There is sludge within the gallbladder. No definite gallstones are noted. Gallbladder wall measures 4 mm. Patient had no pain upon scanning over the gallbladder. Common bile duct measured 4 mm. Right kidney measures 11.2 x 5.5 x 4.8 cm. Color-flow is noted. No solid renal cortical masses or hydronephrosis is noted. US/US right upper quadrant IMPRESSION: 1. Sludge within the gallbladder. No gallstones. Gallbladder wall measured 4 mm. Patient had no pain upon scanning over the gallbladder. 2. Liver was prominent in size measuring 19 cm. There was slight increased echogenicity of liver suggesting fatty infiltration of liver. 3. The remainder of the right upper quadrant was unremarkable. Electronically authenticated by: ROHIT BRANNON Date: 01/01/2023 11:06
--- NOTE | 2023-01-01 10:14 | MR_ITS ---
The [address] [address] Patient Name: DIETER ROBERSON MRN: [facility]:[id number] date: 1975 Sex: F Assigned Patient Location: Current Patient Location: US Accession/Order Number: [id number] Exam Date: 01/01/2023 11:00 Report Date: 01/01/2023 12:31 At the request of: SHAIKH LANIE Procedure: MR cervical spine wo con MR cervical spine wo con, 01/01/2023 11:00 AM EDT INDICATION: Brain Compression G93.5 headache COMPARISON: MRI of the head dated 12/30/2022 TECHNIQUE: Multiplanar, multisequential MRI images of cervical spine were obtained with without contrast. FINDINGS: The sensitivity of the study has been decreased due to motion artifact. Again the cerebellar tonsils are approximately 7 mm below the foramen of magnum consistent with the known Chiari malformation.. There is straightening of normal physiologic cervical lordosis. The vertebral heights are relatively preserved. There is signal abnormality on T1 and T2-weighted images in the vertebral bodies of visualized spine that may suggest bone marrow reconversion in appropriate clinical setting. No definite signal abnormality within the spinal cord is noted. There are mild disc osteophyte complex associated with uncovertebral joint arthrosis from C3 to T1. No significant neuroforaminal narrowing or canal stenosis at the level of C2-C3 is noted. At the level of C3-C4, there is no neuroforaminal narrowing and no canal stenosis. At the level of C4-C5, there is moderate right and mild left neuroforaminal narrowing and mild canal stenosis. At the level of C5-C6, there is moderate bilateral neuroforaminal narrowing and mild canal stenosis. At the level of C6-C7, there is mild bilateral neuroforaminal narrowing and mild canal stenosis. Level of C7-T1 is unremarkable. No definite muscular or ligamentous injury is noted. MR/MR cervical spine wo con IMPRESSION: Mild degenerative changes of the cervical spine in particular at C4-C7. Electronically authenticated by: GEOVANI WALDEN Date: 01/01/2023 12:31
== END 2023-01-01 10:04 | disposition home or self-care (01) ==
LOC: US 10:03
PROVIDERS: PCP Internal Medicine; Visit Provider Internal Medicine
DX: G93.5 Compression of brain (principal); K76.0 Fatty (change of) liver, not elsewhere classified; R05.3 Chronic cough; J44.9 Chronic obstructive pulmonary disease, unspecified; R06.09 Other forms of dyspnea
CPT/HCPCS: 72141; 76705

== ENCOUNTER 2023-01-01 15:03 | Outpatient (OUT) | payer MEDICARE, MEDICAID, SELFPAY | END 2023-01-01 15:04 | disposition home or self-care (01) | LOC: WC 15:03 | PROVIDERS: PCP Internal Medicine; Visit Provider Surgery | DX: G93.5 Compression of brain (principal); K76.0 Fatty (change of) liver, not elsewhere classified; R05.3 Chronic cough; J44.9 Chronic obstructive pulmonary disease, unspecified; R06.09 Other forms of dyspnea; L97.111 Non-pressure chronic ulcer of right thigh limited to breakdown of skin | CPT/HCPCS: 72141; 76705; 97605; A6213 ==

== ENCOUNTER 2023-01-05 15:32 | Outpatient (OUT) | payer MEDICARE, MEDICAID, SELFPAY | END 2023-01-05 15:33 | disposition home or self-care (01) | LOC: WC 15:32 | PROVIDERS: PCP Internal Medicine; Visit Provider Surgery | DX: L97.112 Non-pressure chronic ulcer of right thigh with fat layer exposed (principal) | CPT/HCPCS: A6213; G0463 ==

== ENCOUNTER 2023-01-07 16:06 | Outpatient (OUT) | payer MEDICARE, MEDICAID, SELFPAY | END 2023-01-07 16:07 | disposition home or self-care (01) | LOC: WC 16:06 | PROVIDERS: PCP Internal Medicine; Visit Provider Surgery | DX: L97.112 Non-pressure chronic ulcer of right thigh with fat layer exposed (principal) | CPT/HCPCS: A6213; G0463 ==

== ENCOUNTER 2023-01-09 11:32 | Outpatient (OUT) | payer MEDICARE, MEDICAID, SELFPAY | END 2023-01-09 11:33 | disposition home or self-care (01) | LOC: WC 11:32 | PROVIDERS: PCP Internal Medicine; Visit Provider Surgery | DX: L97.112 Non-pressure chronic ulcer of right thigh with fat layer exposed (principal) | CPT/HCPCS: A6213; G0463 ==

== ENCOUNTER 2023-01-12 14:25 | Outpatient (OUT) | payer MEDICARE, MEDICAID, SELFPAY | END 2023-01-12 14:26 | disposition home or self-care (01) | LOC: WC 14:25 | PROVIDERS: PCP Internal Medicine; Visit Provider Surgery | DX: L97.112 Non-pressure chronic ulcer of right thigh with fat layer exposed (principal) | CPT/HCPCS: A6213; G0463 ==

== ENCOUNTER 2023-01-15 09:51 | Outpatient (OUT) | payer MEDICARE, MEDICAID, SELFPAY | END 2023-01-15 09:52 | disposition home or self-care (01) | LOC: WC 09:51 | PROVIDERS: PCP Internal Medicine; Visit Provider Surgery | DX: L97.112 Non-pressure chronic ulcer of right thigh with fat layer exposed (principal) | CPT/HCPCS: A6213; G0463 ==

== ENCOUNTER 2023-01-19 11:17 | Outpatient (OUT) | payer MEDICARE, MEDICAID, SELFPAY | END 2023-01-19 11:18 | disposition home or self-care (01) | LOC: WC 11:17 | PROVIDERS: PCP Internal Medicine; Visit Provider Surgery | DX: L97.112 Non-pressure chronic ulcer of right thigh with fat layer exposed (principal) | CPT/HCPCS: A6213; G0463 ==

== ENCOUNTER 2023-01-22 12:01 | Outpatient (OUT) | payer MEDICARE, SELFPAY | END 2023-01-22 12:02 | disposition home or self-care (01) | LOC: WC 12:02 | PROVIDERS: PCP Internal Medicine; Visit Provider Surgery | DX: L97.112 Non-pressure chronic ulcer of right thigh with fat layer exposed (principal) | CPT/HCPCS: A6213; G0463 ==

== ENCOUNTER 2023-01-26 11:19 | Outpatient (OUT) | payer MEDICARE, MEDICAID, SELFPAY | END 2023-01-26 11:20 | disposition home or self-care (01) | LOC: WC 11:19 | PROVIDERS: PCP Internal Medicine; Visit Provider Surgery | DX: L97.112 Non-pressure chronic ulcer of right thigh with fat layer exposed (principal) | CPT/HCPCS: A6213; G0463 ==

== ENCOUNTER 2023-01-29 11:05 | Outpatient (OUT) | payer MEDICARE, MEDICAID, SELFPAY | END 2023-01-29 11:06 | disposition home or self-care (01) | LOC: WC 11:05 | PROVIDERS: PCP Internal Medicine; Visit Provider Surgery | DX: L97.112 Non-pressure chronic ulcer of right thigh with fat layer exposed (principal) | CPT/HCPCS: A6213; G0463 ==

== ENCOUNTER 2023-02-02 13:32 | Outpatient (OUT) | payer MEDICARE, MEDICAID, SELFPAY ==
--- NOTE | 2023-02-02 16:06 | P.CN_ITS ---
Consult Note: HPI Data of Consult Patient: new to practice Consult date: 02/02/23 Requesting Physician: Mahnaz Horton MD Primary Care Provider: Shaikh Delores MD Consult Narrative Reason for consult: neck, bilateral shoulder pain Narrative: 47yof who presents for evaluation. history of chiari type I malformation, as well as janet-danlos. was previously prescribed oxycodone 5mg tid prn, which provides relief. cervical imaging reviewed, which is significant for multilevel foraminal stenosis, worst at c5-6 and c6-7, as well as multilevel spondylosis. denies adverse med side effects. 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, unspecified (ICD-10) Herniated disc Nonalcoholic steatohepatitis (ASTUDILLO) ?K75.81 - Nonalcoholic steatohepatitis (ASTUDILLO) (ICD-10) Scoliosis ?M41.9 - Scoliosis, unspecified (ICD-10) Syringomyelia ?G95.0 - Syringomyelia and syringobulbia (ICD-10) Surgical History H/O: hysterectomy ?Z90.710 - Acquired absence of both cervix and uterus (ICD-10) Family History Father Family history of CHF (congestive heart failure) Family history of COPD (chronic obstructive pulmonary disease) Family history of diabetes mellitus Family history of myocardial infarction Grandmother Family history of CHF (congestive heart failure) Mother Family history of COPD (chronic obstructive pulmonary disease) Other Family history of hypertension Social History Within the past year, how often did you have a drink containing alcohol: never Within the past year, how often did you have six or more drinks on one occasion: never Score interpretation: A score less than 3 is consistent with normal alcohol consumption. Smoking status: Current every day smoker Nicotine containing products detail: pack and a half a day Second hand tobacco smoke exposure: No Non-prescribed substance use: denies use Previous occupational history: disabled Highest level of school completed/degree received: 11th grade Do you want help with school or training: No Are you now , , , , never or living with a partner: In a typical week, how many times do you talk on the telephone with family, friends, or neighbors: 3 or more times per week How often do you get together with friends or relatives: 3 or more times per week How often do you attend roman catholic or quaker services: 4 or more times per year Do you belong to any clubs or organizations such as roman catholic groups unions, [employer] or athletic groups, or school groups: yes Total score: 4 Score interpretation: A score of greater than or equal to 2 indicates the lowest level of social isolation. Little interest or pleasure in doing things: not at all Feeling down, depressed, or hopeless: not at all Feel stressed/tense/nervous/anxious/difficulty sleeping: not at all Due to disability, difficulty making decisions: No Do you think of yourself as: straight/heterosexual Gender Identity: female Meds Home Medications and Allergies Home Medications Medication Instructions Recorded Confirmed Type cholecalciferol (vitamin D3) 125 5,000 unit PO DAILY 12/09/22 12/09/22 History mcg (5,000 unit) capsule omeprazole 40 mg capsule,delayed 40 mg PO DAILY 12/09/22 12/09/22 History release oxycodone 5 mg tablet 5 mg PO Q8H PRN pain 12/09/22 12/09/22 History potassium chloride 20 mEq 20 meq PO DAILY 12/09/22 12/09/22 History tablet,extended release(part/cryst) (Klor-Con M) spironolactone 50 mg tablet 50 mg PO BID 12/09/22 12/09/22 History (Aldactone) Allergies Allergy/AdvReac Type Severity Reaction Status Date / Time diphenhydramine Allergy Verified 12/09/22 17:18 [From Benadryl] ketorolac [From Toradol] Allergy Verified 12/09/22 17:18 Penicillins Allergy Verified 12/09/22 17:18 Exam Narrative Exam Narrative: Psych-alert and oriented x 3.? Attentive and appropriate, constitutionally normal, displays normal mood and affect per situation.? There are no obvious deficits in memory, reasoning, or intellect.? Skin-no obvious rashes, bruising, or erythema noted to the patient's area of pain. Extremities-upper extremities are warm with minimal edema and palpable pulses. Cervical- tenderness to palpation noted in the cervical spine and paraspinal musculature.? Pain is elicited with extension, and lateral rotation of the cervical spine.? Range of motion is slightly diminished due to pain. Facet loading maneuvers are positive bilaterally.? Coordination remains intact.? Gait remains non-antalgic. Assessment and Plan Assessment and Plan (1) Cervical spondylosis: (2) Cervical stenosis of spinal canal: (3) Janet-Danlos syndrome: (4) Chiari malformation type I: Plan 47yof who presents for evaluation. failed conservative measures, as noted. given previous relief and medical comorbidities, agreed to prescribe oxycodone 5mg tid prn. also discussed that given her cervical imaging findings, would likely benefit from cervical medial branch blocks and potentially radiofrequency ablation. she expresed understanding. pdmp reviewed, uds will be obtained today. follow up in 3 months.
== END 2023-02-02 13:33 | disposition home or self-care (01) ==
LOC: PM 13:33
PROVIDERS: PCP Internal Medicine; Visit Provider Anesthesiology
DX: M47.812 Spondylosis without myelopathy or radiculopathy, cervical region (principal); M48.02 Spinal stenosis, cervical region; Q79.60 Ehlers-Danlos syndrome, unspecified; G93.5 Compression of brain
CPT/HCPCS: G0463

== ENCOUNTER 2023-02-02 14:27 | Outpatient (OUT) | payer MEDICARE, MEDICAID, SELFPAY | END 2023-02-02 14:28 | disposition home or self-care (01) | LOC: WC 14:27 | PROVIDERS: PCP Internal Medicine; Visit Provider Surgery | DX: M47.812 Spondylosis without myelopathy or radiculopathy, cervical region (principal); M48.02 Spinal stenosis, cervical region; Q79.60 Ehlers-Danlos syndrome, unspecified; G93.5 Compression of brain; L97.112 Non-pressure chronic ulcer of right thigh with fat layer exposed | CPT/HCPCS: A6213; G0463 ==

== ENCOUNTER 2023-02-05 11:42 | Outpatient (OUT) | payer MEDICARE, MEDICAID, SELFPAY | END 2023-02-05 11:43 | disposition home or self-care (01) | LOC: WC 11:42 | PROVIDERS: PCP Internal Medicine; Visit Provider Surgery | DX: L97.112 Non-pressure chronic ulcer of right thigh with fat layer exposed (principal) | CPT/HCPCS: A6213; G0463 ==

== ENCOUNTER 2023-02-12 11:20 | Outpatient (OUT) | payer MEDICARE, MEDICAID, SELFPAY | END 2023-02-12 11:21 | disposition home or self-care (01) | LOC: WC 11:21 | PROVIDERS: PCP Internal Medicine; Visit Provider Surgery | DX: L97.112 Non-pressure chronic ulcer of right thigh with fat layer exposed (principal) | CPT/HCPCS: A6213; G0463 ==

== ENCOUNTER 2023-02-23 11:40 | Outpatient (OUT) | payer MEDICARE, MEDICAID, SELFPAY | END 2023-02-23 11:41 | disposition home or self-care (01) | LOC: WC 11:40 | PROVIDERS: PCP Internal Medicine; Visit Provider Surgery | DX: L97.112 Non-pressure chronic ulcer of right thigh with fat layer exposed (principal) | CPT/HCPCS: A6213; G0463 ==

== ENCOUNTER 2025-03-24 06:58 | Outpatient (OUT) | payer BC, MEDICARE, SELFPAY ==
--- OUTSIDE RECORDS SUMMARY | 2025-03-10 10:00 | XMS_ITS | Encounter Summary ---
Author Organization [facility] Address [address] [place] [address] Care Team Providers Care Toll Settlement Clerk Name Role Phone Shaikh JOS Estrella Primary Care Provider [phone] Reason for Referral * Imaging (Routine) - AuthorizedSpecialtyDiagnoses / ProceduresReferred By ContactReferred To [facility] Diagnoses Abdominal wall bulge Abdominal wall pain Procedures CT abdomen pelvis w IV contrast Chris Colón MD [address] [facility] [address] [place] [address] Phone: tel: fax: [place] [facility] [address] [place] [address] Phone: tel: fax: Referral IDStatusReasonStart DateExpiration DateVisits RequestedVisits [id number]/12/20256/ Reason for Visit * ReasonCommentsFollow-upIncisional hernia RLQ - past [facility] ptPt says she has a possible hernia on right side that has gotten bigger. * Consultation (Routine) - ClosedSpecialtyDiagnoses / ProceduresReferred By ContactReferred To ContactGeneral Surgery Diagnoses Incisional hernia, without obstruction or gangrene Procedures AR OFFICE/OUTPATIENT NEW HIGH MDM 60 MINUTES Satish Moreira MD [address] [facility] [address] [place] [address] Phone: tel: fax: Chris Colón MD [address] [address] Phone: tel: fax: Referral IDStatusReasonStart DateExpiration DateVisits RequestedVisits [id number] Specialty Services Required / Encounter Details DateTypeDepartmentCare Team (Latest Contact Info)Wwkxbrbdiab09/12/2025 10:00 AM ESTOffice Visit [facility] [address] [address] Chris Colón MD [address] [address] Abdominal wall pain (Primary Dx); Abdominal wall bulge; Ventral hernia without obstruction or gangrene; Janet-Danlos syndrome (HCC); Chiari malformation type I (HCC) Social History Tobacco UseTypesPacks/DayYears UsedDateSmoking Tobacco: Every DayCigarettes1.5 34.1Started: 02/10/1991Smokeless Tobacco: NeverAlcohol UseStandard Drinks/Week CommentsNot Currently0 (1 standard drink = 0.6 oz pure alcohol)PHQ-2AnswerDate RecordedPatient Health Questionnaire-2 Fdoyf47004/12/2024CommentsUnknown Sex and Gender InformationValueDate RecordedSex Assigned at BirthNot on file Legal UhmWubffj76/15/2023 7:28 PM EDTGender IdentityNot on fileSexual OrientationNot on filedocumented as of this encounter Last Filed Vital Signs Vital SignReadingTime TakenCommentsBlood Nftpiecf236/6803/10/2025 10:15 AM EST Pulse--Temperature--Respiratory Rate--Oxygen Saturation--Inhaled Oxygen Concentration--Mrzjll18.9 kg (218 lb)03/10/2025 10:15 AM BAEBhkcec697.4 cm (5') 03/10/2025 10:15 AM ESTBody Mass Index42.5803/10/2025 10:15 AM ESTdocumented in this encounter Progress Notes * Chris Blank MD - 03/10/2025 10:00 AM EST Images from the original note were not included. If those stool softeners MiraLax fluids and try to minimize the pain mass or taken lyse the narcoticLaura Ceja 1975 Laura Ceja is a 49 y.o. female presents with chief complaint of Follow-up (Incisional hernia RLQ- past [facility] pt/Pt says she has a possible hernia on right side that has gotten bigger.) HPI: The patient is a 49-year-old female presents with possible ventral hernia. About 3 years [facility], [facility] incision and drainage of a lower abdominal wall abscess following a hysterectomy that was performed in [place]. The area ultimately did heal. Patient has noticed a bulge in that area since about that time but recently, the bulge seems to be enlarging and also she is having more abdominal pain. Bulge is mainly toward the right side of the lower abdomen. Patientis eating. She is moving her bowels. She denies vomiting. 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 She did have problems with wound healing and infection from her hysterectomy and also has had some wound problems from skin lesions/ cysts that have required a long time to heal. SUBJECTIVE: MEDICATIONS: ALLERGIES No current outpatient medications Allergies[1] PAST MEDICAL HISTORY: SOCIAL HISTORY SURGICAL HISTORY: Medical History[2] Social History[3] Surgical History[4] REVIEW OF SYMPTOMS: Review of Systems Constitutional: Negative for fever. Respiratory: Negative for shortness of breath. Cardiovascular: Negative for chest pain. Gastrointestinal: Positive for abdominal pain. Negative for vomiting. Genitourinary: Negative for difficulty urinating. Neurological: Negative for syncope. OBJECTIVE: Visit Vitals BP 118/68 Ht 5' Wt 218 lb BMI 42.58 kg/m?? Smoking Status Every Day BSA 2.05 m?? Physical Exam Constitutional: General: She is not in acute distress. HENT: Head: Atraumatic. Eyes: General: No scleral icterus. Cardiovascular: Rate and Rhythm: Normal rate and regular rhythm. Pulmonary: Breath sounds: Normal breath sounds. Abdominal: Palpations: Abdomen is soft. Tenderness: There is abdominal tenderness. There is no guarding. Comments: There is a bulging with Valsalva in the right lower abdominal wall. Skin: General: Skin is warm and dry. Neurological: Mental Status: She is alert. ASSESSMENT AND PLAN: Assessment/Plan Diagnoses and all orders for this visit: Abdominal wall pain - CT abdomen pelvis w IV contrast; Future Abdominal wall bulge - CT abdomen pelvis w IV contrast; Future Ventral hernia without obstruction or gangrene Janet-Danlos syndrome (HCC) Chiari malformation type I (HCC) Other orders - Ambulatory referral to General Surgery Plan will be to obtain a CT scan of the abdomen and pelvis to identify whether a hernia is present and also if a hernia is present, the extent of the defect. The patient will follow up following the study. She would like the study performed in [place]. Depending on the findings, we may discuss ventral hernia repair or possible referral to tertiary care center such as [facility] because of the potential healing problems with her Janet-Danlos syndrome. Next appointment: 03/31/2025 [1] Allergies Allergen Reactions Diphenhydramine Hives, Itching and Unknown Per pt, causes itching and makes her feel like her skin is crawling Ketorolac Hives, Itching and Unknown itching Penicillins Hives, Itching and Unknown Ketorolac Tromethamine Unknown Wound Dressing Adhesive Rash BRUISING [2] Past Medical History: Diagnosis Date Acid reflux Allergies Anemia Anxiety Arnold-Chiari malformation, type I (HCC) Autoimmune disorder (HCC) Back pain Bloating Blood disorder COPD (chronic obstructive pulmonary disease) (HCC) Janet-Danlos syndrome (HCC) History of Chiari malformation History of herniated intervertebral disc Infected incision Migraine Mild scoliosis Open wound of right thigh, subsequent encounter Scoliosis Steatosis, liver Vertigo Vitamin D deficiency Wound drainage [3] Social History Tobacco Use Smoking status: Every Day Current packs/day: 1.50 Average packs/day: 1.5 packs/day for 34.1 years (51.1 ttl pk-yrs) Types: Cigarettes Start date: 02/10/1991 Smokeless tobacco: Never Vaping Use Vaping status: Never Used Substance Use Topics Alcohol use: Not Currently Drug use: Never [4] Past Surgical History: Procedure Laterality Date ABDOMINAL DEBRIDEMENT AVV DILATION AND CURETTAGE OF UTERUS 11/01/2021 HYSTERECTOMY 11/25/2021 [facility] TUBAL LIGATION documented in this encounter Plan of Treatment DateTypeDepartmentCare Team (Latest Contact Info)Xbuuaeniihp29/02/2026 10:15 AM ESTOffice Visit [facility] [address] [address] Chris Colón MD [address] [address] NameTypePriorityAssociated DiagnosesOrder ScheduleCT abdomen pelvis w IV contrastImagingRoutine Abdominal wall bulge Abdominal wall pain Expected: 03/10/2025, Expires: 03/10/2026documented as of this encounter Visit Diagnoses Diagnosis Abdominal wall pain- Primary Abdominal pain, unspecified site Abdominal wall bulge Ventral hernia without obstruction or gangrene Unspecified ventral hernia without mention of obstruction or gangrene Janet-Danlos syndrome (HCC) Janet-Danlos syndrome Chiari malformation type I (HCC) Compression of brain documented in this encounter Care Teams Team MemberRelationshipSpecialtyStart DateEnd Date Shaikh Estrella MD [address] [place] [address] PCP - GeneralInternal Awojdypf79/1/23documented as of this encounter
--- OUTSIDE RECORDS SUMMARY | 2025-03-24 07:04 | XMS_ITS | Clinical Summary ---
Author Organization [facility] Address [address] [place] [address] Care Team Providers Care Inside Contractor Sales Name Role Phone Unavailable Primary Care Provider Unavailabl e Social History Tobacco UseTypesPacks/DayYears UsedDateSmoking Tobacco: Never AssessedUT Safety & EnvironmentAnswerDate RecordedFear of Current or Ex-PartnerNot on file 05/21/2023Emotionally AbusedNot on file05/21/2023hysically AbusedNot on file 05/21/2023Sexually AbusedNot on file05/21/2023hysically or Sexually AbusedNot on file05/21/2023CommentsUnknownSex and Gender InformationValueDate RecordedSex Assigned at BirthNot on fileLegal JghTlenhe60/29/2022 10:32 PM EDT Gender IdentityNot on fileSexual OrientationNot on file Plan of Treatment Not on file
--- OUTSIDE RECORDS SUMMARY | 2025-03-24 07:04 | XMS_ITS | Clinical Summary ---
Author Organization [facility] Address [address] [place], [place] [address] Care Team Providers Care Dairy Worker Name Role Phone House .DO Charles P Primary Care Provider + Remington Mg DO, Charles P Unavailable [phone] Erik Allen MD Unavailable [phone] Cora Cutler MD Unavailable Harish GIVENS MD, Satish Hanson Unavailable [phone] Allergies Active AllergyReactionsCriticalityNoted DateCommentsDiphenhydramineUnknown 07/11/2020 Per pt, causes itching and makes her feel like her skin is crawling RrufkzfkqEiyvlda66/20/7872VfopxdllzicGjabdte63/14/2021 Medications MedicationSigDispense QuantityRefillsLast FilledStart DateEnd DateStatus oxyCODONE-acetaminophen (PERCOCET) 5-325 mg tablet Take 1 tablet by mouth.06/15/2020ctive esomeprazole (NEXIUM) 40 mg capsule TAKE ONE CAPSULE BY MOUTH ONCE DAILY FOR 30 DAYS07/22/2021ctive potassium chloride ER (K-DUR, KLOR-CON) 20 mEq tablet TAKE ONE TABLET BY MOUTH ONCE DAILY 30 tablet ctive hydroCHLOROthiazide (HYDRODIURIL, ESIDRIX) 25 mg tablet TAKE 1 TABLET BY MOUTH ONCE DAILY. 30 tablet ctive Active Problems ProblemNoted DateDiagnosed DateChiari malformation type I07/30/2020 Assessment & Plan (07/30/2020 10:38 AM EDT): -takes Percocet 5-325 mg for headaches -followed by PCP, Dr. Remington Herculess-Danlos obejipca49/03/2021 Assessment & Plan (07/30/2020 10:39 AM EDT): -Percocet 5-325 mg controls joint pain Morbid nvyljin5807/30/2020 Assessment & Plan (07/30/2020 10:39 AM EDT): -BMI 42.97 Tobacco abuse07/30/2020 Assessment & Plan (07/30/2020 10:40 AM EDT): -smokes 1.5ppd -24 pack year history Iron deficiency xrtyqe0007/30/2020 Assessment & Plan (07/30/2020 10:41 AM EDT): -last H/H 9.7/34.0 on 07/11/20 -s/p IV iron infusion 07/20/20 Pywtuqallxd07/03/2021 Assessment & Plan (07/30/2020 10:42 AM EDT): -3.1 on 07/11/20 -started on oral potassium supplementation on 07/27/20 -serum potassium ordered, results pending (patient to go to lab today when she goes for covid testing) Encounter for screening for cardiovascular fjyvrtnnc51/14/2021 Family History Medical HistoryRelationCommentsAnesthesia ProblemsNo Family History Social History Tobacco UseTypesPacks/DayYears UsedDateSmoking Tobacco: Every DayCigarettes1.516 Smokeless Tobacco: NeverAlcohol UseStandard Drinks/WeekCommentsYes0 (1 standard drink = 0.6 oz pure alcohol)socially - 4-5 drinks per weekPHQ-2AnswerDate RecordedPHQ-2 cykhk4092Area Deprivation IndexAnswerDate RecordedNational Score (1-100), lower number is lower riskNot on file07/11/2020tate Score (1- 10), lower number is lower riskNot on file1Data from: https://www.neighborhoodatlas.medicine.[facility].edu/. Last address used for calculationNot on file07/11/2020CommentsNoSex and Gender Information ValueDate RecordedSex Assigned at BirthNot on fileLegal DcsQvsmgd18/16/2015 9:59 AM EDTGender IdentityNot on fileSexual OrientationNot on file Last Filed Vital Signs Vital SignReadingTime TakenCommentsBlood Agmexdik76/6207 2:05 PM EDT Uxavz987110/18/2021 2:05 PM UXFKmyzsgvuzow73.9 ??C (98.4 ??F)10/18/2021 2:05 PM EDTRespiratory Uefj112310/18/2021 2:05 PM EDTOxygen Mzszlvrftj39%10/10/2021 1:01 PM EDTInhaled Oxygen Concentration--Pcmhhh176.9 kg (229 lb)10/10/2021 1:01 PM ZDNGwgxsl727.4 cm (5')10/10/2021 1:01 PM EDTBody Mass Index44.72010/10/2021 1:01 PM EDT Plan of Treatment Health MaintenanceDue DateLast DoneCommentsAnxiety Xoafwpmxq88/14/1994Depression Vdxbfytln37/14/1994HIV Bkeiasmob15/14/1994DTaP,Tdap,Td Vaccine (1 - Tdap) 11/10/1994Hepatitis B Vaccine (1 of 3 - 19+ 3-dose series)11/10/1994Cervical Cancer Ljeovrluh41/14/1997Mammogram Dpnvwwjmu70/14/2016CT Eujuvngwejwj23/14/2021 Cologuard (FIT-DNA)11/10/2020Fecal Occult Blood11/10/2020ipid Screening 11/10/20209296Zktplslcxvfmm94/14/3715Cswxdwkksrl14/06/202205/olorectal Cancer Qlhybtcoj63/06/2022Diabetes Uxzgqjaux14/08/441429/10/2021, 06/27/2021, 06/21/2021, Additional history existsCovid-19 Vaccine ( - 2024- season) 2024Influenza Vaccine (#1)2024Hepatitis C ScreeningCompleted 07/26/2021 Procedures Procedure NamePriorityDate/TimeAssociated DiagnosisCommentsHEPATITIS C ANTIBODY IA WITH CMFSTDDMSRYDXynsqdr42/29/2022 2:17 PM EDT Iron deficiency anemia, unspecified iron deficiency anemia type Edema, unspecified type COMPREHENSIVE METABOLIC MEJEJXybcdtb26/08/2022 12:30 PM EDT Iron deficiency anemia, unspecified iron deficiency anemia type TISZKZRGVARKwbbkrd65/06/2021 3:05 PM EDT from Last 3 Months or Most Recently Relevant to Health Maintenance Results * HEP C AB IA W/CONF SCRN (07/26/2021 2:17 PM EDT)ComponentValueRef RangeTest MethodAnalysis TimePerformed AtPathologist SignatureHep C Antibody IANegative Dpouoogm02/30/2022 10:00 AM EDTCLAKE COUNTY MEM[facility] LABComment:The result suggests no evidence of active infection with Hepatitis C virus. Should recent infectionbe suspected, repeat testing may be considered 4-6 weeks after this draw.Specimen (Source)Anatomical Location / LateralityCollection Method / VolumeCollection TimeReceived TimeBloodBLOOD SPECIMEN / UnknownVenipuncture / Blusfrp3507/26/2021 2:17 PM EDT07/26/2021 2:17 PM EDT Narrative Authorizing ProviderResult TypeResult StatusJose Maria Ricardo MDLABORATORYFinal ResultPerforming OrganizationAddressCity/State/ZIP CodePhone Number [facility] [address] * (ABNORMAL) COMP METABOLIC PANEL (07/05/2021 12:30 PM EDT)ComponentValueRef RangeTest MethodAnalysis TimePerformed AtPathologist SignatureProtein, Total 7.36.3 - 8.0 g/dL07/05/2021 1:02 PM EDTNORTHCOAST [facility] Albumin3.8(L)3.9 - 4.9 g/dL07/05/2021 1:02 PM EDTNORTELLIS [facility]ISCHEL [facility] LABCalcium, Total9.08.5 - 10.2 mg/dL07/05/2021 1:02 PM [facility] LABBilirubin, Total0.90.2 - 1.3 mg/dL07/05/2021 1:02 PM [facility] LABAlkaline Aqdbiooziad981(H)34 - 123 U/L 07/05/2021 1:02 PM [facility] UGOEKI699(H)13 - 35 U/L07/05/2021 1:02 [facility] JMVFZY92(H)7 - 38 U/L07/05/2021 1:02 PM [facility] XDCGielsxs867(H)74 - 99 mg/dL07/05/2021 1:02 PM [facility] LABComment: The [place] Diabetes Association (ADA) provides guidance for cutoff values for fasting glucose andrandom glucose. The ADA defines fasting as no caloric intake for at least 8 hours. Fasting plasma glucose results between 100 to 125 mg/dL indicate increased risk for diabetes (prediabetes). Fasting plasma glucose results greater than or equal to 126 mg/dL meet the criteria for diagnosis of diabetes. In the absence of unequivocal hyperglycemia, results should be confirmed by repeat testing. In a patient with classic symptoms of hyperglycemia or hyperglycemic crisis, random plasma glucose results greater than or equal to 200 mg/dL meet the criteria for diagnosis of diabetes. Reference: Standards of Medical Care in Diabetes 2016, [place] Diabetes Association. Diabetes Care. 2016.39(Suppl 1). BUN6(L)7 - 21 mg/dL07/05/2021 1:02 PM [facility] Creatinine0.660.58 - 0.96 mg/dL07/05/2021 1:02 PM [facility] YVNBdogkr300411 - 144 mmol/L07/05/2021 1:02 PM [facility] LABPotassium4.33.7 - 5.1 mmol/L07/05/2021 1:02 PM [facility] OHZRedceukd3078 - 105 mmol/L07/05/2021 1:02 PM EDT [facility] YZRNZ85052 - 30 mmol/L07/05/2021 1:02 PM EDT [facility] LABAnion Anx257 - 18 mmol/L07/05/2021 1:02 PM EDTTHOM[facility] LABEstimated Glomerular Filtration Hssl740 >=60 mL/min/1.73m 07/05/2021 1:02 PM EDTTHOMAS MEM[facility]IAL [facility]OS[facility] LABComment:Estimated Glomerular Filtration Rate (eGFR) is calculated using the 2020 CKD-EPI creatinine equation. This equation utilizes serum creatinine, sex, and age as parameters. The creatinine assay has traceable calibration to isotope dilution- mass spectrometry. Refer to KDIGO guidelines for clinical interpretation. In patients with unstable renal function, e.g. those with acute kidney injury, the eGFRmay not accurately reflect actual GFR.Specimen (Source)Anatomical Location / LateralityCollection Method / VolumeCollection TimeReceived TimeBloodBLOOD SPECIMEN / UnknownVenipuncture / Scyxefk9207/05/2021 12:30 PM EDT07/05/2021 12:30 PM EDT Narrative Authorizing ProviderResult TypeResult StatusMindawit BRAVO-CLABORATORYFinal ResultPerforming OrganizationAddressCity/State/ZIP CodePhone Number [facility] [address] [place] [address] * COLONOSCOPY (08/02/2020 3:05 PM EDT)ComponentValueRef RangeTest MethodAnalysis TimePerformed AtPathologist SignatureTranscriptionSHedrick Medical Center Gastrointestinal Endoscopy Patient Name: Laura Ceja Procedure Date: 08/02/2020 3:05 PM Date of : 1975 Admit Type: Ambulatory Age: 44 Room: SP Procedure Room 4 Gender: Female Note Status: Finalized Attending MD: Scott Diaz MD Procedure: ? Colonoscopy Indications: ? Diarrhea, Iron deficiency anemia Providers: ? Scott Diaz MD Patient Profile: ? This is a 44 year old female. Refer to note in ? patient chart for documentation of history and ? physical. Last Colonoscopy: none. The patient's first ? colonoscopy is today. Referring Physician: Medicines: ? Monitored Anesthesia Care Complications: ? No immediate complications. Requesting Provider: Procedure: ? Pre-Anesthesia Assessment: ? - Prior to the procedure, a History and Physical was ? performed, and patient medications and allergies were ? reviewed. The patient's tolerance of previous ? anesthesia was also reviewed. The risks and benefits ? of the procedure and the sedation options and risks ? were discussed with the patient. All questions were ? answered, and informed consent was obtained. Prior ? Anticoagulants: The patient has taken no previous ? anticoagulant or antiplatelet agents. ASA Grade ? Assessment: I - A normal, healthy patient. After ? reviewing the risks and benefits, the patient was ? deemed in satisfactory condition to undergo the ? procedure. ? After I obtained informed consent, the scope was ? passed under direct vision. Throughout the procedure, ? the patient's blood pressure, pulse, and oxygen ? saturations were monitored continuously. The ? Colonoscope was introduced through the anus and ? advanced to the terminal ileum, with identification ? of the appendiceal orifice and IC valve. The ? colonoscopy was performed without difficulty. The ? patient tolerated the procedure well. The quality of ? the bowel preparation was good. The terminal ileum, ? ileocecal valve, appendiceal orifice, and rectum were ? photographed. Scope Withdrawal Time: 0 hours 16 minutes 20 seconds Moderate Sedation: ? MAC anesthesia was administered by the anesthesia team. Total Procedure Duration: 0 hours 32 minutes 39 seconds Findings: ? The perianal and digital rectal examinations were normal. ? Two sessile polyps were found in the rectum. The polyps were 4 to 5 ? mm in size. These polyps were removed with a cold biopsy forceps. ? Resection and retrieval were complete. Estimated blood loss was ? minimal. ? A 13 mm polyp was found in the splenic flexure. The polyp was ? sessile. The polyp was removed with a saline injection-lift technique ? using a hot snare. Resection and retrieval were complete. Estimated ? blood loss: none. ? Non-bleeding internal hemorrhoids were found during retroflexion. The ? hemorrhoids were small. ? The terminal ileum appeared normal. Biopsies were taken with a cold ? forceps for histology. Estimated blood loss was minimal. ? The exam was otherwise without abnormality. Impression: ?- Two 4 to 5 mm polyps in the rectum, removed with a ? cold biopsy forceps. Resected and retrieved. ? - One 13 mm polyp at the splenic flexure, removed ? using injection-lift and a hot snare. Resected and ? retrieved. ? - Non-bleeding internal hemorrhoids. ? - The examined portion of the ileum was normal. ? Biopsied. ? - The examination was otherwise normal. Recommendation: ?- Patient has a contact number available for ? emergencies. The signs and symptoms of potential ? delayed complications were discussed with the ? patient. Return to normal activities tomorrow. ? Written discharge instructions were provided to the ? patient. ? - Resume previous diet. ? - No aspirin, ibuprofen, naproxen, or other ? non-steroidal anti-inflammatory drugs for 5 days ? after polyp removal. ? - Await pathology results. ? - Repeat colonoscopy for surveillance based on ? pathology results. ? - Continue present medications. Attending Participation: ? I personally performed the entire procedure. Scope In: 3:45:08 PM Scope Out: 4:17:47 PM MD Scott Lizarraga MD 08/02/2020 4:33:57 PM This report has been signed electronically by Scott Diaz MD Number of Addenda: 0 Note Initiated On: 08/02/2020 3:05 PM Estimated Blood Loss: ? Estimated blood loss was minimal.[facility] INSTITUTESpecimen (Source)Anatomical Location / LateralityCollection Method / VolumeCollection TimeReceived Time08/02/2020 3:05 PM EDT Narrative Authorizing ProviderResult TypeResult StatusDavid Lola Diaz MDDIGESTIVE DISEASE REGIONALFinal ResultPerforming OrganizationAddressCity/State/ZIP CodePhone Number [facility] [address] [place] [address] [facility] from Last 3 Months or Most Recently Relevant to Health Maintenance Insurance Care Teams Team MemberRelationshipSpecialtyStart DateEnd Chandana Macedo Sr., DO PCP - GeneralFamily Xypbbwed99/31/12 Chandana Macedo Sr., DO ReferringFamily Hkirznyz32/31/12 Erik Allen MD [address] [place] [address] ReferringGastroenterology05/14/21 Cora Cutler MD [address] [place] [address] ReferringGastroenterology11/18/22 Satish Moreira II, MD [address] [place] [address] [address] [place] [address] ReferringInternal Kuxxdkrt76/5/25
--- OUTSIDE RECORDS SUMMARY | 2025-03-24 07:04 | XMS_ITS | Encounter Summary ---
Author Organization [facility] Address [address] [place] [address] Care Team Providers Care Utility Specialist Name Role Phone Shaikh JOS Estrella Primary Care Provider [phone] Encounter Details DateTypeDepartmentCare Team (Latest Contact Info)Xuugltaunqa06/12/2025Travel Social History Tobacco UseTypesPacks/DayYears UsedDateSmoking Tobacco: Every DayCigarettes1.5 34.1Started: 02/10/1991Smokeless Tobacco: NeverAlcohol UseStandard Drinks/Week CommentsNot Currently0 (1 standard drink = 0.6 oz pure alcohol)PHQ-2AnswerDate RecordedPatient Health Questionnaire-2 Hxoms16504/12/2024CommentsUnknown Sex and Gender InformationValueDate RecordedSex Assigned at BirthNot on file Legal ObxGiewdi42/15/2023 7:28 PM EDTGender IdentityNot on fileSexual OrientationNot on filedocumented as of this encounter Plan of Treatment DateTypeDepartmentCare Team (Latest Contact Info)Hcqvhmhuwvi72/02/2026 10:15 AM ESTOffice Visit [facility] [address] [phone] Chris Colón MD [address] [address] documented as of this encounter Visit Diagnoses Not on filedocumented in this encounter Care Teams Team MemberRelationshipSpecialtyStart DateEnd Date Shaikh Estrella MD [address] [place] [address] PCP - GeneralInternal Feamsbgw79/1/23documented as of this encounter
--- OUTSIDE RECORDS SUMMARY | 2025-03-24 07:04 | XMS_ITS | Clinical Summary ---
Author Organization [facility] Address [id number] [address] [place] [address] Care Team Providers Care Intervention Specialist Name Role Phone Chandana Macedo DO Primary Care Provider [phone] Allergies Active AllergyReactionsCriticalityNoted DateCommentsDiphenhydramineHives,Itching Powsqs7607/11/2020 Per pt, causes itching and makes her feel like her skin is crawling KetorolacHives,MopfrhlEmiddg90/20/2013 itching PenicillinsHives,TuifymeUcfaat51/14/2021 Medications MedicationSigDispense QuantityRefillsLast FilledStart DateEnd DateStatus esomeprazole (NexIUM) 40 mg capsule Take 40 mg by mouth every morning before breakfast.10/25/2021ctive hydroCHLOROthiazide (HYDRODIURIL) 25 mg tablet Take 25 mg by mouth daily.10/25/2021ctive oxyCODONE-acetaminophen (PERCOCET) 5-325 mg per tablet Take 1 tablet by mouth every 6 (six) hours as needed.10/25/2021ctive potassium chloride (KLOR-CON M 20) 20 MEQ CR tablet Take 20 mEq by mouth in the morning.10/25/2021ctive acetaminophen (TylenoL) 325 mg tablet Take 2 tablets (650 mg total) by mouth every 6 (six) hours as needed for pain. 30 tablet 11/27/2021ctive docusate sodium (COLACE) 100 mg capsule Take 1 capsule (100 mg total) by mouth in the morning and 1 capsule (100 mg total) before bedtime. 10 capsule 11/27/2021ctive simethicone (MYLICON) 80 mg chewable tablet Chew 1 tablet (80 mg total) and swallow every 6 (six) hours as needed for flatulence. 30 tablet 11/27/2021ctive ondansetron ODT (ZOFRAN ODT) 4 mg disintegrating tablet Dissolve 1 tablet (4 mg total) on tongue every 8 (eight) hours as needed for nausea or vomiting. 20 tablet 11/27/2021ctive Active Problems ProblemNoted DateDiagnosed DateRespiratory ihkmdetyuxqfvq34/31/2022besity hypoventilation /31/2022 Resolved Problems ProblemNoted DateDiagnosed DateResolved DatePelvic mass in iakleo8811/25/2021 12/09/2021bnormal uterine bleeding (AUB)Leiomyoma11/14/2021 12/11/2021 Immunizations No known immunizations Family History Medical HistoryRelationNameCommentsAnesthesia problemsNeg Hx Social History Tobacco UseTypesPacks/DayYears UsedDateSmoking Tobacco: Every BixHmpqeeqmri92 Started: 1991Smokeless Tobacco: NeverAlcohol UseStandard Drinks/WeekCommentsYes0 (1 standard drink = 0.6 oz pure alcohol)1-2 per weekCommentsNoSex and Gender InformationValueDate RecordedSex Assigned at BirthNot on fileLegal Sex Jamach4111/07/2021 11:13 AM EDTGender IdentityNot on fileSexual OrientationNot on file Last Filed Vital Signs Vital SignReadingTime TakenCommentsBlood Bvsbziwh267/7311/27/2021 7:22 PM EDT Uenpf254711/27/2021 7:22 PM KJPBhnfeqzcfxb86.8 ??C (98.2 ??F)11/27/2021 7:22 PM EDTRespiratory Kcrx982811/27/2021 7:22 PM EDTOxygen Pbdpplzdss90%11/27/2021 7:22 PM EDTInhaled Oxygen Concentration--Gckddw153.4 kg (238 lb 15.7 oz)11/27/2021 4:29 AM PEOKtijsl897.4 cm (5')11/26/2021 9:57 AM EDTBody Mass Index46.67 11/26/2021 9:57 AM EDT Plan of Treatment Health MaintenanceDue DateLast DoneCommentsDepression Wgavhtvim72/14/1988Tobacco Yqrjnyinv65/14/1988Adult BMI Zmgykqbim34/14/1994DTaP,Tdap and Td Vaccines (1 - Tdap)11/10/1994Pap Smear11/10/1996Influenza Bzyquzj0011/28/2024 Goals GoalPatient Goal TypeAssociated ProblemsRecent ProgressPatient-Stated?Author Long-Term Goals Clara Hutchinson LSW Note: Evaluation of progress towards goal: home/self care Medical Devices Not on file Insurance Care Teams Team MemberRelationshipSpecialtyStart DateEnd Chandana Patton DO PCP - GeneralFamily Medicine11/19/21
--- OUTSIDE RECORDS SUMMARY | 2025-03-24 07:04 | XMS_ITS | Patient Health Record ---
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) ActiveconfirmedProblemAutoimmune disease (70825049)Autoimmune disease (M35.9) ActiveconfirmedProblemNASH - Nonalcoholic steatohepatitis (380023495)ASTUDILLO (nonalcoholic steatohepatitis) (K75.81)ActiveconfirmedProblemChronic obstructive pulmonary disease (00090994)Advanced COPD (J44.9)ActiveconfirmedProblemPressure injury of buttock stage II (disorder) (36445180883367969)Decubitus ulcer of buttock, stage 2 (L89.302)ActiveconfirmedProblemDecubitus ulcer, elbow, left, unstageable (L89.020)Activeconfirmed Plan Of Treatment No Information Insurance Providers Payer Name Payer Address Payer Phone Subscriber Number Group Number Insured Name Patient Relationship to Insured Coverage Start Date Coverage End Date [place] [address] [place] [address] [id number] Lul Ceja - patient is the [id number] 2010MEDICAID [facility] [address] OFF[place] OF [place], [place] [id number], TinaSelf - patient is the [id number] 2022
--- OUTSIDE RECORDS SUMMARY | 2025-03-24 07:04 | XMS_ITS | Clinical Summary ---
Author Organization [facility] Address [address] [place] [address] Care Team Providers Care Cell Cleaner Name Role Phone Shaikh JOS Estrella Primary Care Provider [phone] Allergies Active AllergyReactionsCriticalityNoted DateCommentsDiphenhydramineHives,Itching ,JqxruqyZckqrl52/14/2021 Per pt, causes itching and makes her feel like her skin is crawling KetorolacHives,Itching,UoogpwfXqaosf93/20/2013 itching Ketorolac WjazrhjjoxonTbtdymm15/18/2023enicillinsHives,Itching,UnknownMedium 07/11/2020Wound Dressing OypbparkOwoaWwf45/18/2023 [place] Medications MedicationSigDispense QuantityRefillsLast FilledStart DateEnd DateStatus sulfamethoxazole-trimethoprim (Bactrim DS) 800-160 MG per tablet Indications:Acute non-recurrent sinusitis, unspecified locationTake 1 tablet by mouth in the morning and 1 tablet before bedtime. Do all this for 10 days. 20 tablet Discontinued(Therapy completed) Active Problems ProblemNoted DateDiagnosed DateAbdominal wall bulge03/10/2025bdominal wall pain 03/10/2025Spondylosis of cervical region without myelopathy or radiculopathy 02/10/2025Fatty liver02/10/2025Encounter for screening mammogram for breast trjrip1303/16/2023 Assessment & Plan (03/16/2023 7:01 PM EST): Ordered mammogram for the patient. Phufgjgsyfd83/18/2023 Assessment & Plan (03/16/2023 7:02 PM EST): Check BMP - if potassium is normal, can discontinue oral potassium Medicare annual wellness visit, ozixtkv0703/16/2023 Assessment & Plan (03/16/2023 7:03 PM EST): Doing well. No complaints to offer. Reviewed medical, surgical and social hx. Counseled on smoking cessation. Upto date on colon cancer, cervical cancer screening Ordered mammogram for the patient. Chiari malformation type I07/30/2020 Overview (03/16/2023): Last Assessment & Plan: -takes Percocet 5-325 mg for headaches -followed by PCP, Dr. Macedo Assessment & Plan (03/16/2023 7:01 PM EST): Stable. Asymptomatic. No obstruction noted on MRI 2022 Iron deficiency lomgvv1707/30/2020 Overview (03/16/2023): Last Assessment & Plan: -last H/H 9.7/34.0 on 07/11/20 -s/p IV iron infusion 07/20/20 Tobacco abuse07/30/2020 Overview (03/16/2023): Last Assessment & Plan: -smokes 1.5ppd -24 pack year history Assessment & Plan (03/16/2023 7:02 PM EST): Patient counseled on smoking/tobacco cessation. Patient educated on harmful effects of smoking cigarettes/tobacco including increased risk of cardiovascular diseases, chronic lung disease and multiple cancers. Patient was educated and informed of different behavioral and therapeutic interventions that can help with smoking/tobacco use. Patient's questions/concerns were addressed and answered related to therapeutic options. Patient was offered help and encouraged to reach out to provider if/when they are ready to quit. A total of over 3 minutes and up to 10 minutes were spent on Smoking/Tobacco use counseling. Patient is not ready to quit yet. Janet-Danlos syndrome Encounters DateTypeDepartmentCare DlhbLbmpmhwdudy85/12/2025 10:00 AM ESTOffice Visit [facility] [address] [facility] [address] [place] [address] Chris Colón MD Abdominal wall pain (Primary Dx); Abdominal wall bulge; Ventral hernia without obstruction or gangrene; Janet-Danlos syndrome (HCC); Chiari malformation type I (HCC)03/10/20256373Ybwfuq36/05/2025External Result Encounter [facility] Unsolicited Satish Moreira MD 03/02/2025 9:15 AM ESTOffice Visit [facility] [address] [facility] [address] [place] [address] Satish Moreira MD Elevated hemoglobin (Primary Dx); Acute non-recurrent sinusitis, unspecified mcewyhmg98/04/2025amboo flowsheet [facility] [address] [facility] [address] [place] [address] Satish Moreira MD 03/02/20251756Qknzmt89/20/1923Lksmnw14/19/2025Telephone [facility] [address] [facility] [address] [place] [address] Satish Moreira MD Appointment Rktgubh5902/15/2025bstract [facility] [address] [facility] [address] [place] [address] Unallocated, Nommandy Jensen MD 02/13/2025Telephone [facility] [address] [facility] [address] [place] [address] Satish Moreira MD 02/10/2025 10:30 AM ESTOffice Visit [facility] [address] [facility] [address] [place] [address] Satish Moreira MD Routine general medical examination at health care facility (Primary Dx); ACP (advance care planning); Encounter for screening mammogram for breast cancer; Chiari malformation type I (HCC); Iron deficiency anemia due to chronic blood loss; Tobacco abuse; Fatty liver; Spondylosis of cervical region without myelopathy or radiculopathy; Screening for diabetes mellitus; Janet-Danlos syndrome (HCC); Incisional hernia, without obstruction or /14/2025amboo flowsheet [facility] [place] [facility] [address] [facility] [address] [place] [address] Satish Moreira MD 02/10/2025Travelfrom Last 3 Months Family History Medical HistoryRelationNameCommentsDiabetesBrotherDiabetesFatherHeart disease FatherDiabetesMotherHeart diseaseMotherHeart diseasePaternal GrandfatherHeart diseasePaternal GrandmotherThyroid diseaseSisterRelationNameStatusComments BrotherFatherDeceasedMotherAlivePaternal GrandfatherPaternal GrandmotherSister Social History Tobacco UseTypesPacks/DayYears UsedDateSmoking Tobacco: Every DayCigarettes1.5 34.1Started: 02/10/1991Smokeless Tobacco: Never Tobacco Cessation:Ready to Q uit: Not Asked; Counseling Given: Not Answered Alcohol UseStandard Drinks/WeekCommentsNot Currently0 (1 standard drink = 0.6 oz pure alcohol)PHQ-2AnswerDate RecordedPatient Health Questionnaire-2 Score0 02/10/2025CommentsUnknownSex and Gender InformationValueDate RecordedSex Assigned at BirthNot on fileLegal RimDsfypg68/15/2023 7:28 PM EDTGender Identity Not on fileSexual OrientationNot on file Last Filed Vital Signs Vital SignReadingTime TakenCommentsBlood Mpdiyfal665/6803/10/2025 10:15 AM EST Cdxkq453003/02/2025 9:24 AM YMQDuiqevipwwn58.3 ??C (99.1 ??F)03/16/2023 6:24 PM ESTRespiratory Rate--Oxygen Ydcfdjqdcy74%03/02/2025 9:24 AM ESTInhaled Oxygen Concentration--Gcqppk98.9 kg (218 lb)03/10/2025 10:15 AM EZZVdhcis565.4 cm (5') 03/10/2025 10:15 AM ESTBody Mass Index42.5803/10/2025 10:15 AM EST Plan of Treatment DateTypeDepartmentCare Team (Latest Contact Info)Efrjexiycwh86/02/2026 10:15 AM ESTOffice Visit [facility] [address] [address] Chris Colón MD [address] [facility] [address] [place] [address] Procedures Procedure NamePriorityDate/TimeAssociated DiagnosisCommentsDIFF AND CBCRoutine 03/03/2025 2:46 PM EST ABN TEST VGXVDVJBhuyvsg97/17/2025 11:09 AM EST LIPID YCEOCGvatyom92/17/2025 11:09 AM EST Routine general medical examination at [facility] care facility Fatty liver COMPREHENSIVE METABOLIC DHMVKEvxiegj54/17/2025 11:09 AM EST Routine general medical examination at [facility] facility Fatty liver CBC (INCLUDES DIFF/PLT)Exhdysb8502/13/2025 11:09 AM EST Routine general medical examination at [facility] care facility Iron deficiency anemia due to chronic blood loss POCT QKWEVEANdopopp35/14/2025 11:12 AM EST Screening for diabetes mellitus from Last 3 Months Results * (ABNORMAL) DIFF AND CBC (03/03/2025 2:46 PM EST)ComponentValueRef RangeTest MethodAnalysis TimePerformed AtPathologist SixtvobbgZMG89.7(H)3.8 - 11.6 [CFU]/mL03/03/2025 4:56 PM [facility] CtrUNCORRECTED WHITE BLOOD COUNT12.7(H)3.8 - 11.6 10*3/uL03/03/2025 4:56 PM [facility] CtrRBC5.22(H)3.60 - 5.00 10*6/uL03/03/2025 4:56 PM [facility] TdjNTBLYAGUQZ02.5(H)11.8 - 15.4 g/dL03/03/2025 4:56 PM [facility] JgxKVZWSPXYMF39.9(H)34.0 - 46.4 %03/03/2025 4:56 PM [facility] TsdICW72.580 - 100 fL03/03/2025 4:56 PM [facility] KdmPSY90.524.7 - 34.3 pg03/03/2025 4:56 PM [facility] JceNVTL15.332.0 - 35.0 g/dL03/03/2025 4:56 PM [facility] CtrRED CELL DISTRIBUTION WIDTH, RDW14.111.9 - 15.3 %03/03/2025 4:56 PM [facility] CtrPLATELET BRZNC724620 - 450 10*3/uL03/03/2025 4:56 PM [facility] CtrMEAN PLATELET VOLUME, MPV8.06.3 - 10.7 fL03/03/2025 4:56 PM [facility] CtrSEGMENTED VWYCOJRQTZK0376 - 70 %03/03/2025 5:04 PM [facility] CtrBAND VSRHURVSFMX04 - 5 %03/03/2025 5:04 PM [facility] JgwAJOOANBXDFX9059 - 42 %03/03/2025 5:04 PM [facility] CtrREACTIVE CVVHXWBWLKA53 - 12 %03/03/2025 5:04 PM [facility] EncMZXUDMLOH88 - 11 %03/03/2025 5:04 PM [facility] KreMUGNKBTQZFO14 - 3 %03/03/2025 5:04 PM [facility] XouTHRBTNSUAASAAQmqyxi56/05/2025 5:04 PM [facility] CtrPLATELET ZLEBFODYNxopxrUqcxbq42/05/2025 5:04 PM [facility] CtrGIANT PLATELET TALLY1/100{WBC}03/03/2025 5:04 PM [facility] CtrPLATELET TOHEMREDTTFavhxnSlzmhp44/05/2025 5:04 PM EST [facility] CtrSpecimen (Source)Anatomical Location / LateralityCollection Method / VolumeCollection TimeReceived TimeBlood (Blood) 03/03/2025 2:46 PM EST03/03/2025 2:46 PM EST Narrative Authorizing ProviderResult TypeResult StatusSatish HARRIS BLOOD ORDERABLESFinal ResultPerforming OrganizationAddressCity/State/ZIP CodePhone Number [facility] [address] [place] [address], [facility] [address] [place] [address] * ABN TEST REFUSAL (02/13/2025 11:09 AM EST)ComponentValueRef RangeTest Method Analysis TimePerformed AtPathologist SignatureRAMQUESTComment: Be advised that your patient has indicated on the advance beneficiary notice their decision not to receive the following laboratory tests. As a result, the tests will not be performed. ABN TEST REFUSEDTSH T4 FREEQUESTSpecimen (Source)Anatomical Location / LateralityCollection Method / VolumeCollection TimeReceived Time02/13/2025 11:09 AM EST02/13/2025 11:12 AM EST Narrative [facility] - 02/14/2025 7:08 AM EST TSH T4 FREE RESFUSED ABN SIGNED FASTING:YES FASTING: YES Resulting Agency Comment Performing Organization Information ?Site ID: QPT ?Name: [facility] ?Address: [address] [place] [phone] ?Director: Callum Conway MD Authorizing ProviderResult TypeResult StatusSatish HARRIS BLOOD ORDERABLESFinal ResultPerforming OrganizationAddressCity/State/ZIP CodePhone Number [facility] * (ABNORMAL) CBC and differential (02/13/2025 11:09 AM EST)ComponentValueRef RangeTest MethodAnalysis TimePerformed AtPathologist SignatureWHITE BLOOD CELL COUNT10.33.8 - 10.8 Thousand/uLQUESTRED BLOOD CELL COUNT5.33(H)3.80 - 5.10 Million/yJWCOVVPCYPHKISBW21.0(H)11.7 - 15.5 g/dPXUVRWIEXCFEZXLD04.1(H)35.0 - 45.0 %HEOQGVLG76.680.0 - 100.0 rDFPJRJRYW53.8(H)27.0 - 33.0 wdJOORLGXHB62.9 32.0 - 36.0 g/dLQUESTComment: For adults, a slight decrease in the calculated MCHC value (in the range of 30 to 32 g/dL) is most likely not clinically significant; however, it should be interpreted with caution in correlation with other red cell parameters and the patient's clinical condition. RDW12.311.0 - 15.0 %QUESTPLATELET RTDQI527779 - 400 Thousand/nTZRIFNGXR23.37.5 - 12.5 fLQUESTABSOLUTE NEUTROPHILS6,3761,500 - 7,800 cells/uLQUESTABSOLUTE LYMPHOCYTES3,709826 - 3,900 cells/uLQUESTABSOLUTE GTUYVIMJS632250 - 950 cells/uL QUESTABSOLUTE SQYUEGMVXPB25210 - 500 cells/uLQUESTABSOLUTE ZFIXRPIUT046 - 200 cells/fIGOBEADAGTNHBPATN39.9%FVWHPNAYPWLMBJXV38.3%QUESTMONOCYTES6.0%QUEST EOSINOPHILS2.3%QUESTBASOPHILS0.5%QUESTSpecimen (Source)Anatomical Location / LateralityCollection Method / VolumeCollection TimeReceived TimeBloodVenous blood specimen / Rjyzglo6702/13/2025 11:09 AM EST02/13/2025 11:12 AM EST Narrative [facility] - 02/14/2025 7:08 AM EST TSH T4 FREE RESFUSED ABN SIGNED FASTING:YES FASTING: YES Resulting Agency Comment Performing Organization Information ?Site ID: QPT ?Name: [facility] ?Address: [address] [place] [phone] ?Director: Callum Conway MD Authorizing ProviderResult TypeResult StatusDajuan Moreira MDLAB BLOOD ORDERABLESFinal ResultPerforming OrganizationAddressCity/State/ZIP CodePhone Number [facility] * (ABNORMAL) Lipid panel (02/13/2025 11:09 AM EST)ComponentValueRef RangeTest MethodAnalysis TimePerformed AtPathologist SignatureCHOLESTEROL, NLXLW213<200 mg/dLQUESTHDL HIGPMEZHCOE97(L)> OR = 50 mg/fKYUYMBDNBTYPGZKTDVU949<150 mg/dL QUESTLDL FOSMKTRFEGG097(H)mg/dL (calc)QUESTComment: Reference range: <100 Desirable range <100 mg/dL for primary prevention; <70 mg/dL for patients with CHD or diabetic patients with > or = 2 CHD risk factors. LDL-C is now calculated using the Cathi calculation, which is a validated novel method providing better accuracy than the Friedewald equation in the estimation of LDL-C. Ty SS et al. TAYLOR. 2013;310(20): 2296-7661 (http://education.[employer]/faq/DRA924) CHOL/HDLC RATIO4.5<5.0 (calc)QUESTNON HDL SERPHWJMXJT464(H)<130 mg/dL (calc) QUESTComment: For patients with diabetes plus 1 major ASCVD risk factor, treating to a non-HDL-C goal of <100 mg/dL (LDL-C of <70 mg/dL) is considered a therapeutic option. Specimen (Source)Anatomical Location / LateralityCollection Method / Volume Collection TimeReceived TimeBloodVenous blood specimen / Cqpfgjh1702/13/2025 11:09 AM EST02/13/2025 11:12 AM EST Narrative [facility] - 02/14/2025 7:08 AM EST TSH T4 FREE RESFUSED ABN SIGNED FASTING:YES FASTING: YES Resulting Agency Comment Performing Organization Information ?Site ID: QPT ?Name: [facility] ?Address: [address] [place] [address], [address] [place] [phone] ?Director: Callum Conway MD Authorizing ProviderResult TypeResult StatusDajuan Moreira MDLAB BLOOD ORDERABLESFinal ResultPerforming OrganizationAddressCity/State/ZIP CodePhone Number [facility] * Comprehensive metabolic panel (02/13/2025 11:09 AM EST)ComponentValueRef Range Test MethodAnalysis TimePerformed AtPathologist ScppqzbwiFvdoixl9102 - 99 mg/dLQUESTComment: ? Fasting reference interval TKY225 - 25 mg/dLQUESTCreatinine0.690.50 - 0.99 mg/zUQDBPJZJBR498> OR = 60 mL/min/1.81t1NEJMECEJ/CREATININE RATIOSEE NOTE: (calc)QUESTComment: ?? Not Reported: BUN and Creatinine are within ?? reference range. ? Usamjh154374 - 146 mmol/LQUESTPotassium, Bld4.23.5 - 5.3 mmol/SPGLMSRjtrjkqb539 98 - 110 mmol/LQUESTCarbon Oqpuzfz5057 - 32 mmol/LQUESTCalcium9.68.6 - 10.2 mg/dLQUESTPROTEIN, TOTAL7.66.1 - 8.1 g/dLQUESTALBUMIN4.53.6 - 5.1 g/dLQUEST GLOBULIN3.11.9 - 3.7 g/dL (calc)QUESTALBUMIN/GLOBULIN RATIO1.51.0 - 2.5 (calc) QUESTBILIRUBIN, TOTAL0.80.2 - 1.2 mg/dLQUESTALKALINE VTRZFXAWHGK4843 - 125 U/L SMGVSMOZ7377 - 35 U/CTNWHJUQQ887 - 29 U/LQUESTSpecimen (Source)Anatomical Location / LateralityCollection Method / VolumeCollection TimeReceived TimeBlood Venous blood specimen / Mxtchte2202/13/2025 11:09 AM EST02/13/2025 11:12 AM EST Narrative [facility] - 02/14/2025 7:08 AM EST TSH T4 FREE RESFUSED ABN SIGNED FASTING:YES FASTING: YES Resulting Agency Comment Performing Organization Information ?Site ID: QPT ?Name: [facility] ?Address: [address] [place] [phone] ?Director: Callum Conway MD Authorizing ProviderResult TypeResult StatusSatish Moreira MDLAB BLOOD ORDERABLESFinal ResultPerforming OrganizationAddressCity/State/ZIP CodePhone Number [facility] * POCT glucose (02/10/2025 11:12 AM EST)ComponentValueRef RangeTest Method Analysis TimePerformed AtPathologist SignatureGlucose Blood, ELO24cb/dL Specimen (Source)Anatomical Location / LateralityCollection Method / Volume Collection TimeReceived TimeBloodCapillary blood specimen / Qbfphzs9202/10/2025 11:12 AM EST Narrative Authorizing ProviderResult TypeResult StatusSatish Moreira MDPOINT OF CARE TEST ENTER/EDIT ORDERABLESFinal Result from Last 3 Months Insurance Care Teams Team MemberRelationshipSpecialtyStart DateEnd Date Shaikh Estrella MD [address] [place] [address] PCP - GeneralInternal Acyjznng06/1/23
--- NOTE | 2025-03-24 07:10 | CT_ITS ---
The [address] [address] Patient Name: DIETER ROBERSON MRN: [id number] date: 1975 Sex: F Assigned Patient Location: CT Current Patient Location: [facility] Accession/Order Number: [id number] Exam Date: 03/24/2025 08:00 Report Date: 03/24/2025 09:20 At the request of: MARIBELL WALL Procedure: CT abdomen pelvis w con CT ABDOMEN AND PELVIS WITH CONTRAST COMPARISON: CT abdomen and pelvis 05/08/2022 and pelvis only 12/10/2022 CLINICAL DATA: Enlarging right-sided abdominal bulge. Spiral images were obtained through the abdomen and pelvis with Valsalva following oral and 100 mL of Omnipaque 300. Markers placed at the site of clinical concern. This CT exam was performed using one or more following dose reduction techniques: Automated exposure control, adjustment of the mA and/or kV according to patient size, or use of iterative reconstruction technique. Limited cuts through the lung bases show no contributory findings. There is fatty infiltration of the liver. A cyst is present near the veronica. The gallbladder is contracted and gallstones are not excluded. The spleen, pancreas and adrenal glands show no acute findings. There are symmetric renal nephrograms, without hydronephrosis. There is minor plaque at the abdominal aorta and iliac arteries. Tiny lymph nodes are visualized. There is no ascites. There is a large multiloculated ventral hernia, slightly asymmetric toward the right extending almost 20 cm in craniocaudal dimension. The hernia is significantly larger than the comparison exams. The upper components contain only fat. The dominant component contains mesenteric fat, transverse colon and nondistended small bowel. The mouth of the dominant hernia in the axial plane measures approximately 7 cm. This is at the site of palpable concern. The intra-abdominal small bowel loops are normal caliber. There is mild stool along the colon. There are degenerative changes at the lumbosacral junction. Images through the pelvis show normal caliber small bowel. The appendix is not definitely seen. There is minimal distal colonic stool. No diverticular disease is identified. The uterus is surgically absent. There are no urinary bladder abnormalities for the degree of distention. No ascites is seen. CT/CT abdomen pelvis w con IMPRESSION: FATTY LIVER AND SMALL HEPATIC CYST. LARGE VENTRAL HERNIA CONTAINING MESENTERIC FAT, TRANSVERSE COLON AND NONDISTENDED SMALL BOWEL. Impression dictated by: Macy Carlton M.D. 03/24/2025 9:20 AM Dictation Location: Rewarding ReturnItrybeforeIbuy Electronically authenticated by: [id number] Y Date: 03/24/2025 09:20
== END 2025-03-24 06:59 | disposition home or self-care (01) ==
LOC: CT 07:01
PROVIDERS: PCP Internal Medicine; Visit Provider Internal Medicine Hematology & Oncology
DX: R19.00 Intra-abdominal and pelvic swelling, mass and lump, unspecified site (principal); R10.9 Unspecified abdominal pain; K76.0 Fatty (change of) liver, not elsewhere classified; K43.9 Ventral hernia without obstruction or gangrene; Z12.31 Encounter for screening mammogram for malignant neoplasm of breast
CPT/HCPCS: 74177; 77063; 77067; Q9967

== ENCOUNTER 2025-03-24 07:04 | Outpatient (OUT) | payer BC, MEDICARE, SELFPAY ==
--- NOTE | 2025-03-24 07:45 | MM_ITS ---
Patient Name: DIETER ROBERSON MR#: [id number] : 1975 Exam Date: 03/24/2025 Ordering Doctor: DR ENOC CERVANTES M.D. RADIOLOGY REPORT PROCEDURE: MM TOMOSYNTHESIS SCREENING BI COMPARISON: None. INDICATIONS: Screening Calculator Name NCI Breast Cancer Risk Assessment Tool 5 Year Breast Cancer Risk 0.80% Lifetime Breast Cancer Risk 8.20% Personal Breast Cancer No Personal Ovarian Cancer No Treatments None Family Cancers None LOCATION: [facility] BREAST COMPOSITION: The breasts are almost entirely fatty. FINDINGS: DIAGNOSTIC CATEGORY 1--NEGATIVE. RIGHT BREAST: No significant suspicious finding. LEFT BREAST: No significant suspicious finding. RECOMMENDATIONS: ROUTINE MAMMOGRAM AND CLINICAL EVALUATION IN 12 MONTHS. Dictated by: Mike Miller MD on 03/24/2025 at 12:26 Approved by: Mike Miller MD on 03/24/2025 at 12:29
== END 2025-03-24 07:05 | disposition home or self-care (01) ==
LOC: MAMMO 07:05
PROVIDERS: PCP Internal Medicine; Visit Provider Internal Medicine
DX: Z12.31 Encounter for screening mammogram for malignant neoplasm of breast (principal)
CPT/HCPCS: 77063; 77067